=== PATIENT | female | born 1960 | race Caucasian/White ===

== ENCOUNTER 2017-05-08 17:08 | Inpatient (IN) | payer BC ==
[2017-05-08] MEDS ORDERED: Ondansetron 4 MG/2 ML SDV IVPUSH ONE (17:47)
[2017-05-08] MEDS ORDERED: Sodium Chloride 0.9% 1,000 ML IV ONE ×2 (17:47→20:10)
[2017-05-08] MEDS ORDERED: HYDROmorphone 0.5 MG/0.5 ML SYRINGE IVPUSH ONE ×2 (17:47→19:02)
--- NOTE | 2017-05-08 18:08 | EDM.PDOC ---
ED HPI GENERAL MEDICAL PROBLEM - General Chief Complaint: Abdominal Pain Stated Complaint: ABDOMINAL PAIN Time Seen by Provider: 05/08/17 17:34 Source of Information: Reports: Patient, Old Records (clinic visit 05-08-17) History Limitations: Reports: No Limitations - History of Present Illness INITIAL COMMENTS - FREE TEXT/NARRATIVE: 56-year-old female presents for evaluation and treatment of abdominal pain. Patient reports she is she has been experiencing abdominal pain for the last 4 days. Worsened today. She presented to the clinic where she had labs and an x- ray don Labs remarkable for CRP is 15. White blood cell count was 9.25. Abdominal x-ray was reportedly unremarkable. Patient is primarily complaining of pain to the left lower quadrant. Reportedly had a temperature of 101 at home yesterday. Reports associated symptoms of a fever and headache. No nausea, vomiting or diarrhea. No urinary symptoms such as dysuria. No chest pain. No previous abdominal surgeries. She did appreciate that eating makes the pain worse. Last intake was around noon, she had some tomato soup. She's not had any previous abdominal surgeries. No previous colonoscopy. Lower Abdominal Pain Score (Numeric/FACES): 3 - Related Data Allergies Allergy/AdvReac Type Severity Reaction Status Date / Time No Known Allergies Allergy Verified 05/08/17 22:21 Home Meds: Home Meds Lisinopril 10 mg PO DAILY 05/08/17 [History] Past Medical History Cardiovascular History: Reports: Hypertension Other Musculoskeletal History: back surgery - Past Surgical History Female Surgical History: Reports: Hysterectomy Social & Family History - Tobacco Use Smoking Status *Q: Never Smoker - Recreational Drug Use Recreational Drug Use: No ED ROS GENERAL - Review of Systems Review Of Systems: See Below Constitutional: Reports: Fever (101 at home), Decreased Appetite GI/Abdominal: Reports: Abdominal Pain (LLQ). Denies: Diarrhea, Nausea, Vomiting : Reports: No Symptoms. Denies: Dysuria ED EXAM, GI/ABD - Physical Exam Exam: See Below Exam Limited By: No Limitations General Appearance: Alert, WD/WN, Mild Distress Respiratory/Chest: No Respiratory Distress, Lungs Clear, Normal Breath Sounds Cardiovascular: Normal Peripheral Pulses, Regular Rate, Rhythm, No Murmur GI/Abdominal Exam: Normal Bowel Sounds, Soft, Guarding, Rebound, Tender (LLQ, LUQ). No: Rigid Neurological: Alert, Oriented, Normal Cognition Psychiatric: Normal Affect, Normal Mood Skin Exam: Warm, Dry, Normal Color EKG INTERPRETATION EKG Date: 05/08/17 Time: 21:50 Rhythm: Other (sinus tach) Rate (Beats/Min): 102 [place]burn: LAD-Left Heyburn Deviation P-Wave: Present QRS: Normal ST-T: Normal QT: Normal EKG Interpretation Comments: Sinus tachycardia at 102 bpm. LAD (-54 degrees) LAFB. Poor "R" wave progression. RSR' V1-I normal variant. Near Q waves III and AVF - consider old inferior wall MT. Reviewed by myself and Dr. Amrao. Course - Vital Signs Last Recorded V/S: Last Vital Signs Temp 37.2 C 05/08/17 17:23 Pulse 96 05/08/17 17:23 Resp 16 05/08/17 17:23 BP 182/109 H 05/08/17 17:23 Pulse Ox 98 05/08/17 17:23 - Orders/Labs/Meds Orders: Active Orders 24 hr Category Date Time Status Abdomen Pelvis w Cont [CT] Stat Exams 05/08/17 17:47 Taken CULTURE BLOOD [BC] Stat Lab 05/08/17 19:45 Received CULTURE BLOOD [BC] Stat Lab 05/08/17 19:55 Received CULTURE URINE [RM] Stat Lab 05/08/17 15:56 Received Sodium Chloride 0.9% [Normal Saline] 1,000 ml Med 05/08/17 20:10 Active IV ONETIME Sodium Chloride 0.9% [Saline Flush] Med 05/08/17 19:13 Active 10 ml FLUSH ONETIME PRN Blood Culture x2 Reflex Set [OM.PC] Stat Oth 05/08/17 19:02 Ordered Medication Orders Heparin Sodium (Porcine) (Heparin Sodium) 5,000 units SUBCUT Q8H ALEXANDRA Hydromorphone HCl (Dilaudid) 0.2 - 0.6 mg IVPUSH Q2H PRN PRN Reason: Pain Sodium Chloride (Normal Saline) 1,000 mls @ 125 mls/hr IV ONETIME ONE Stop: 05/09/17 04:09 Last Admin: 05/08/17 20:15 Dose: 125 mls/hr Piperacillin Sod/Tazobactam (Sod 4.5 gm/ Sodium Chloride) 100 mls @ 33.333 mls/ hr IV Q8H ALEXANDRA Sodium Chloride (Normal Saline) 1,000 mls @ 125 mls/hr IV ASDIRECTED ALEXANDRA Ondansetron HCl (Zofran) 4 mg IVPUSH Q8H PRN PRN Reason: Nausea/Vomiting Sodium Chloride (Saline Flush) 10 ml FLUSH ONETIME PRN PRN Reason: Keep Vein Open Last Admin: 05/08/17 19:27 Dose: 10 ml Labs: Laboratory Tests 05/08/17 Range/Units 19:45 Lactic Acid 0.9 (0.4-2.0) mmol/L Meds: Medications Generic Name Dose Route Start Last Admin Trade Name Freq PRN Reason Stop Dose Admin Heparin Sodium (Porcine) 5,000 units 05/08/17 21:15 Heparin Sodium SUBCUT Q8H ALEXANDRA Hydromorphone HCl 0.2 - 0.6 mg 05/08/17 21:09 Dilaudid IVPUSH Q2H PRN Pain Sodium Chloride 1,000 mls @ 125 mls/hr 05/08/17 20:10 05/08/17 20:15 Normal Saline IV 05/09/17 04:09 125 mls/hr ONETIME ONE Administration Piperacillin Sod/Tazobactam 100 mls @ 33.333 mls/hr 05/09/17 06:00 Sod 4.5 gm/ Sodium Chloride IV Q8H ALEXANDRA Sodium Chloride 1,000 mls @ 125 mls/hr 05/08/17 21:15 Normal Saline IV ASDIRECTED ALEXANDRA Ondansetron HCl 4 mg 05/08/17 21:09 Zofran IVPUSH Q8H PRN Nausea/Vomiting Sodium Chloride 10 ml 05/08/17 19:13 05/08/17 19:27 Saline Flush FLUSH 10 ml ONETIME PRN Administration Keep Vein Open Discontinued Medications Generic Name Dose Route Start Last Admin Trade Name Freq PRN Reason Stop Dose Admin Diatrizoate Meglum/Diatrizoate Sod 90 ml 05/08/17 19:13 05/08/17 19:26 Gastrografin 37% PO 05/08/17 19:14 90 ml ONETIME ONE Administration Hydromorphone HCl 0.5 mg 05/08/17 17:47 05/08/17 17:59 Dilaudid IVPUSH 05/08/17 17:48 0.5 mg ONETIME ONE Administration Hydromorphone HCl 0.5 mg 05/08/17 19:02 05/08/17 19:11 Dilaudid IVPUSH 05/08/17 19:03 0.5 mg ONETIME ONE Administration Sodium Chloride 1,000 mls @ 999 mls/hr 05/08/17 17:47 05/08/17 17:58 Normal Saline IV 05/08/17 18:47 999 mls/hr ONETIME ONE Administration Levofloxacin/Dextrose 750 mg/ 150 mls @ 100 mls/hr 05/08/17 20:01 05/08/17 20 :12 Premix IV 05/08/17 21:30 100 mls/hr ONETIME ONE Administration Metronidazole 500 mg/ Premix 100 mls @ 100 mls/hr 05/08/17 20:01 05/08/17 20: 15 IV 05/08/17 21:00 100 mls/hr ONETIME ONE Administration Iopamidol 125 ml 05/08/17 19:13 05/08/17 19:26 Isovue-300 (61%) IVPUSH 05/08/17 19:14 125 ml ONETIME ONE Administration Ondansetron HCl 4 mg 05/08/17 17:47 05/08/17 17:58 Zofran IVPUSH 05/08/17 17:48 4 mg ONETIME ONE Administration - Radiology Interpretation Free Text/Narrative:: CT of the abdomen and pelvis with IV and oral contrast impression per Kar acute diverticulitis left lower quadrant phlegmon an arrow within surrounding mesentery. Stomach and bowel show multiple colonic diverticula are present. Wall thickening of the descending colon with surrounding inflammatory change consistent with acute diverticulitis. Small moderate air is noted within the surrounding mesentery consistent with mild friction phlegmon. No obstruction. No findings to suggest acute appendicitis. - Re-Assessments/Exams Free Text/Narrative Re-Assessment/Exam: 05/08/17 17:55 Labs and imaging from the clinic include the following: Flat and upright abdominal xray impression per Dr. Chen: Incidental findings. Bowel gas pattern appears normal. No free air is seen. white Blood cell count 9.25, hemoglobin 15.5, hematocrit 47.0, platelets 259. 67.9% neutrophils, 18.8% lymphocytes. Sodium 142, potassium 3.9, chloride 104, bicarbonate 26, anion gap 15.9, BUN 16 , creatinine 0.7. Glucose 101. Total bilirubin 0.8, AST 26, ALT, 36, alkaline phosphatase 68. CRP is elevated at 15.8. Lipase is normal at 81. UA shows trace leukocytes, few bacteria and positive nitrites. 2+ protein, trace ketones and 1+ bilirubin.. 05/08/17 20:25 Patient has received 1 mg, total, IV Dilaudid, Zofran and fluids. I ordered her some Levaquin and Flagyl for the diverticulitis. I reviewed the imaging results with the patient. Given that this is a complicated case of diverticulitis due to the small perforation and phlegmon I do feel she needs to be admitted. Blood pressure has come down once pain was better controlled. Blood pressure at 1913 148/97 at 1915 147/[address] Cheatham, surgery diamond mounter. He will come to the ER and evaluated the patient. Plan for admission. Plan will be to manage with IV antibiotics, pain medication and nothing by mouth status. 05/08/17 22:31 Blood pressure at 21:20 si 154/[address] Cheatham has come and seen the patient. She'll be admitted to [facility] for IV antibiotics and pain control. Departure - Departure Time of Disposition: 21:40 Disposition: Admitted As Inpatient 64 Condition: Fair Clinical Impression: Diverticulitis large intestine Qualifiers: Diverticulitis bleeding: unspecified bleeding status Diverticulitis complication: with perforation Qualified Code(s): K57.20 - Diverticulitis of large intestine with perforation and abscess without bleeding - Discharge Information - My Orders Last 24 Hours: My Active Orders 05/08/17 15:56 CULTURE URINE [RM] Stat 05/08/17 17:47 Abdomen Pelvis w Cont [CT] Stat 05/08/17 19:02 Blood Culture x2 Reflex Set [OM.PC] Stat 05/08/17 19:13 Sodium Chloride 0.9% [Saline Flush] 10 ml FLUSH ONETIME PRN 05/08/17 19:45 CULTURE BLOOD [BC] Stat 05/08/17 19:55 CULTURE BLOOD [BC] Stat 05/08/17 20:10 Sodium Chloride 0.9% [Normal Saline] 1,000 ml IV ONETIME - Assessment/Plan Last 24 Hours: My Active Orders 05/08/17 15:56 CULTURE URINE [RM] Stat 05/08/17 17:47 Abdomen Pelvis w Cont [CT] Stat 05/08/17 19:02 Blood Culture x2 Reflex Set [OM.PC] Stat 05/08/17 19:13 Sodium Chloride 0.9% [Saline Flush] 10 ml FLUSH ONETIME PRN 05/08/17 19:45 CULTURE BLOOD [BC] Stat 05/08/17 19:55 CULTURE BLOOD [BC] Stat 05/08/17 20:10 Sodium Chloride 0.9% [Normal Saline] 1,000 ml IV ONETIME
[2017-05-08] MEDS ORDERED: Iopamidol 612 MG/ML 150 ML Bottle IVPUSH ONE (19:13)
[2017-05-08] MEDS ORDERED: Diatrizoate Meglumine/Diatrizoate Sodium 37% 120 ML Bottle PO ONE (19:13)
[2017-05-08] MEDS ORDERED: Sodium Chloride 0.9% 10 ML Syringe FLUSH PRN (19:13)
[2017-05-08] MEDS ORDERED: Levofloxacin/Dextrose 5%-Water 750 MG in Premix Bag 1 BAG IV ONE (20:01)
[2017-05-08] MEDS ORDERED: metroNIDAZOLE/Normal Saline 500 MG in Premix Bag 1 BAG IV ONE (20:01)
[2017-05-08] MEDS ORDERED: Ondansetron 4 MG/2 ML SDV IVPUSH PRN (21:09)
--- NOTE | 2017-05-08 22:10 | PCM.HP ---
H&P History of Present Illness - General Date of Service: 05/08/17 Admit Problem/Dx: Admission Diagnosis/Problem Admission Diagnosis/Problem Diverticulitis of colon Source of Information: Patient History Limitations: Reports: No Limitations - History of Present Illness Initial Comments - Free Text/Narative: 56 yo female, presents with worsening LEFT-sided abdominal pain which started about 4 days ago. Pain got acutely worse last night, which prompted the patient to seek care in the outpatient clinic this afternoon. Due to the need for CT scan, she was referred to the ER. She received IV Dilaudid for pain control, with partial relief. She has noted decreased appetite during the pain episode, without nausea/emesis. She also had loose stool last night, without bloody bowel movements. She has noted decreased flatus when asked. Patient has never had a colonoscopy. Patient believes that she has no FHx of colon cancer or colonic polyps. Lower Abdominal Pain Score (Numeric/FACES): 3 - Related Data Allergies/Adverse Reactions: Allergies Allergy/AdvReac Type Severity Reaction Status Date / Time No Known Allergies Allergy Verified 05/08/17 22:21 Past Medical History Cardiovascular History: Reports: Hypertension (Takes lisinopril daily (last dose was noon today).) Other Musculoskeletal History: back surgery - Past Surgical History Female Surgical History: Reports: Breast Implant (20 years ago), Hysterectomy (Age 33 (reason unclear).) Neurological Surgical History: Reports: Lumbar Spine (for lumbar disc herniation (about 1 year ago)) Social & Family History - Family History Respiratory: Reports: COPD (Father had COPD/emphysema) GI: Reports: Bowel Obstruction (Father had colonic obstruction (from diverticular disease?), requiring surgery and colostomy) - Tobacco Use Smoking Status *Q: Former Smoker (Quit 25 years ago) - Alcohol Use Alcohol Use History: Yes Days Per Week of Alcohol Use: 7 (7-14 drinks/week) - Recreational Drug Use Recreational Drug Use: No - Living Situation & Occupation Living situation: Reports: ( present at bedside), Other (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76 kg - Exam General: Alert, Oriented, Cooperative HEENT: Conjunctiva Clear. No: Scleral Icterus Neck: Supple. No: Lymphadenopathy Lungs: Clear to Auscultation, Normal Respiratory Effort Cardiovascular: Regular Rhythm, Normal S1, Normal S2, Tachycardia GI/Abdominal Exam: Soft, Tender (Tender to the LEFT mid-abdomen and LLQ, with percussion tenderness), Other (No obvious surgical scars) Extremities: Normal Inspection Skin: Warm Neuro Extensive - Mental Status: Alert, Normal Mood/Affect, Normal Cognition Psychiatric: Alert, Normal Affect, Normal Mood - Patient Data Lab Results Last 24 hrs: Laboratory Results - last 24 hr 05/08/17 Range/Units 19:45 Lactic Acid 0.9 (0.4-2.0) mmol/L Problem List Initiated/Reviewed/Updated: Yes Orders Last 24hrs: Active Orders 24 hr Category Date Time Status Patient Status [ADT] Urgent ADT 05/08/17 21:02 Active Ambulate [RC] Q8HR Care 05/08/17 21:02 Active EKG 12 Lead [EKG Documentation Completion] [RC] STAT Care 05/08/17 21:25 Active Intake and Output Strict [RC] Q4HR Care 05/08/17 21:15 Active Oxygen Therapy [RC] PRN Care 05/08/17 21:02 Active RT Incentive Spirometry [RC] ASDIRECTED Care 05/08/17 21:09 Active VTE/DVT Education [RC] PER UNIT ROUTINE Care 05/08/17 21:02 Active Vital Signs [RC] Q4H Care 05/08/17 21:02 Active Nothing Per Oral Diet [DIET] Diet 05/08/17 Dinner Active Abdomen Pelvis w Cont [CT] Stat Exams 05/08/17 17:47 Taken CULTURE BLOOD [BC] Stat Lab 05/08/17 19:45 Received CULTURE BLOOD [BC] Stat Lab 05/08/17 19:55 Received CULTURE URINE [RM] Stat Lab 05/08/17 15:56 Received HYDROmorphone [Dilaudid] Med 05/08/17 21:09 Active 0.2 - 0.6 mg IVPUSH Q2H PRN Heparin Sodium Med 05/08/17 21:15 Active 5,000 units SUBCUT Q8H Ondansetron [Zofran] Med 05/08/17 21:09 Active 4 mg IVPUSH Q8H PRN Piperacillin/Tazobactam [Zosyn] 4.5 gm Med 05/09/17 06:00 Active Sodium Chloride 0.9% [Normal Saline] 100 ml IV Q8H Sodium Chloride 0.9% [Normal Saline] 1,000 ml Med 05/08/17 21:15 Active IV ASDIRECTED Sodium Chloride 0.9% [Normal Saline] 1,000 ml Med 05/08/17 20:10 Active IV ONETIME Sodium Chloride 0.9% [Saline Flush] Med 05/08/17 19:13 Active 10 ml FLUSH ONETIME PRN Blood Culture x2 Reflex Set [OM.PC] Stat Oth 05/08/17 19:02 Ordered Sequential Compression Device [OM.PC] Routine Oth 05/08/17 21:09 Ordered Resuscitation Status Routine Resus Stat 05/08/17 21:02 Ordered Medication Orders Heparin Sodium (Porcine) (Heparin Sodium) 5,000 units SUBCUT Q8H ALEXANDRA Hydromorphone HCl (Dilaudid) 0.2 - 0.6 mg IVPUSH Q2H PRN PRN Reason: Pain Sodium Chloride (Normal Saline) 1,000 mls @ 125 mls/hr IV ONETIME ONE Stop: 05/09/17 04:09 Last Admin: 05/08/17 20:15 Dose: 125 mls/hr Piperacillin Sod/Tazobactam (Sod 4.5 gm/ Sodium Chloride) 100 mls @ 33.333 mls/ hr IV Q8H ALEXANDRA Sodium Chloride (Normal Saline) 1,000 mls @ 125 mls/hr IV ASDIRECTED ALEXNADRA Ondansetron HCl (Zofran) 4 mg IVPUSH Q8H PRN PRN Reason: Nausea/Vomiting Sodium Chloride (Saline Flush) 10 ml FLUSH ONETIME PRN PRN Reason: Keep Vein Open Last Admin: 05/08/17 19:27 Dose: 10 ml Assessment/Plan Comment:: Mrs. Mcrae is a 56 yo female, history of hypertension, presenting with acute LEFT-sided colonic diverticulitis, with small pericolonic/mesenteric phlegmon ( [place]hey I). - Recommend admission for IV antibiotics. - Patient already received a dose of levofloxacin IV and metronidazole IV in the ER. Will continue IV antibiotics, but switch to IV Zosyn. - Pain control with IV Dilaudid PRN. - Bowel rest (NPO with sips of water). - IV fluids. - Strict I&O's. - SCD's and heparin 5000 units SQ q8h for DVT prophylaxis. - Explained to the patient the need for admission and IV antibiotics. If the patient does not clinically improve, she may require surgical intervention with possible colonic resection and colostomy. - Once patient recovers from this acute episode, she will require a colonoscopy. Patient with elevated BP on admission. Repeat vitals recently show SBP 140-150' s. Will monitor BP, and consider resumption of home dose of lisinopril. Patient would like to return home for a brief moment (<1 hour) in order to complete some important tax documents. The patient and her were determined to be reliable, and will plan to return to the hospital for inpatient care on [facility].
[2017-05-08] MEDS: Heparin Sodium 5,000 Units/ML Vial SUBCUT SCH (22:49)
[2017-05-08] MEDS ORDERED: Promethazine 12.5 MG in Sodium Chloride 0.9% 50 ML IV PRN (23:15)
[2017-05-08] MEDS: Ondansetron 4 MG/2 ML SDV IVPUSH PRN (23:41)
[2017-05-09] MEDS: Sodium Chloride 0.9% 1,000 ML IV SCH ×2 (04:21→12:39)
[2017-05-09] MEDS: HYDROmorphone 0.5 MG/0.5 ML SYRINGE IVPUSH PRN ×6 (04:36→21:07)
[2017-05-09] MEDS: Heparin Sodium 5,000 Units/ML Vial SUBCUT SCH ×4 (04:46→21:10)
[2017-05-09] MEDS: Ondansetron 4 MG/2 ML SDV IVPUSH PRN ×3 (05:36→20:01)
[2017-05-09] MEDS: Piperacillin/Tazobactam 4.5 GM in Sodium Chloride 0.9% 100 ML IV SCH ×3 (05:41→21:43)
--- NOTE | 2017-05-09 08:30 | CT ---
CT abdomen and pelvis Technique: Multiple axial sections were obtained from above the dome of the diaphragm inferiorly to the pubic symphysis. Intravenous and oral contrast was utilized. Delayed images were also obtained through the bladder. Comparison: No prior CT exam, previous abdominal x-ray performed earlier on the same day (3:56 PM). Findings: Inflammatory change is seen around the left colon at the junction of the sigmoid colon and descending colon. Findings are compatible with diverticulitis. Small amount of extraluminal air is seen compatible with diverticular perforation with mild amount of surrounding phlegmon. No focal fluid collections of abscess are seen at this time. Slight atelectasis is seen posteriorly within both lung bases. Incidental breast prosthesis are noted. Liver shows diffuse fatty infiltration without focal abnormality. Spleen appears within normal limits. Adrenal glands show no nodule. Pancreas is within normal limits. Gallbladder contains no calcified gallstones. Kidneys show symmetric contrast enhancement without hydronephrosis. Small cyst measuring less than 1 cm incidentally noted within the left kidney. Kidneys show no other mass. Aorta shows no aneurysmal dilatation. No retroperitoneal adenopathy or mesenteric abnormalities are seen. No pelvic mass or adenopathy is seen. Numerous diverticuli are seen within the sigmoid colon. No additional pelvic abnormality is identified. Delayed images show contrast within the distal ureters and within the bladder. Bone window settings were reviewed which appear within normal limits for the patient's age. Impression: 1. Findings compatible with diverticulitis at the junction of the descending and sigmoid regions with a small amount of extraluminal air compatible with diverticular perforation. Mild amount of surrounding phlegmon is seen. No abscess is seen at this time. 2. Fatty infiltration within the liver. 3. Other incidental findings. Diagnostic code #3 Agree with preliminary report issued by [facility] ([facility] preliminary report dictated on 05/08/17, 8:43 PM Central Time)
--- NOTE | 2017-05-09 13:51 | PCM.PN ---
- General Info Date of Service: 05/09/17 Subjective Update: Overnight, patient had emesis x2. She also had difficulty sleeping due to multiple episodes of watery bowel movements, but this has resolved. Nausea has also since resolved, although she still has lack of appetite. She reports overall that her LEFT-sided abdominal pain has improved. She gets relief from IV Dilaudid (two doses today so far). She does have occasional headache. She has been ambulating to and from the bathroom. [id number]. - Patient Data Vitals - Most Recent: Last Vital Signs Temp 36.3 C 05/09/17 11:09 Pulse 82 05/09/17 11:09 Resp 16 05/09/17 11:09 BP 128/90 05/09/17 11:09 Pulse Ox 93 L 05/09/17 11:09 Weight - Most Recent: 73.936 kg I&O - Last 24 Hours: Intake & Output 05/08/17 05/09/17 05/09/17 22:59 06:59 14:59 Intake Total 925 Output Total 220 Balance 705 Lab Results Last 24 Hours: Laboratory Results - last 24 hr 05/08/17 Range/Units 19:45 Lactic Acid 0.9 (0.4-2.0) mmol/L Med Orders - Current: Current Medications Heparin Sodium (Porcine) (Heparin Sodium) 5,000 units SUBCUT Q8H [facility] Last Admin: 05/09/17 12:39 Dose: 5,000 units Hydromorphone HCl (Dilaudid) 0.2 - 0.6 mg IVPUSH Q2H PRN PRN Reason: Pain Last Admin: 05/09/17 12:40 Dose: 0.4 mg Piperacillin Sod/Tazobactam (Sod 4.5 gm/ Sodium Chloride) 100 mls @ 33.333 mls/ hr IV Q8H [facility] Last Admin: 05/09/17 13:07 Dose: 33.333 mls/hr Sodium Chloride (Normal Saline) 1,000 mls @ 125 mls/hr IV ASDIRECTED [facility] Last Admin: 05/09/17 12:39 Dose: 125 mls/hr Promethazine HCl 12.5 mg/ (Sodium Chloride) 50.5 mls @ 100 mls/hr IV Q6H PRN PRN Reason: Nausea Ondansetron HCl (Zofran) 4 mg IVPUSH Q4H PRN PRN Reason: Nausea Last Admin: 05/09/17 12:56 Dose: 4 mg Sodium Chloride (Saline Flush) 10 ml FLUSH ONETIME PRN PRN Reason: Keep Vein Open Last Admin: 05/08/17 19:27 Dose: 10 ml Discontinued Medications Diatrizoate Meglum/Diatrizoate Sod (Gastrografin 37%) 90 ml PO ONETIME ONE Stop: 05/08/17 19:14 Last Admin: 05/08/17 19:26 Dose: 90 ml Hydromorphone HCl (Dilaudid) 0.5 mg IVPUSH ONETIME ONE Stop: 05/08/17 17:48 Last Admin: 05/08/17 17:59 Dose: 0.5 mg Hydromorphone HCl (Dilaudid) 0.5 mg IVPUSH ONETIME ONE Stop: 05/08/17 19:03 Last Admin: 05/08/17 19:11 Dose: 0.5 mg Sodium Chloride (Normal Saline) 1,000 mls @ 999 mls/hr IV ONETIME ONE Stop: 05/08/17 18:47 Last Admin: 05/08/17 17:58 Dose: 999 mls/hr Levofloxacin/Dextrose 750 mg/ (Premix) 150 mls @ 100 mls/hr IV ONETIME ONE Stop: 05/08/17 21:30 Last Admin: 05/08/17 20:12 Dose: 100 mls/hr Metronidazole 500 mg/ Premix 100 mls @ 100 mls/hr IV ONETIME ONE Stop: 05/08/17 21:00 Last Admin: 05/08/17 20:15 Dose: 100 mls/hr Sodium Chloride (Normal Saline) 1,000 mls @ 125 mls/hr IV ONETIME ONE Stop: 05/09/17 04:09 Last Admin: 05/08/17 20:15 Dose: 125 mls/hr Iopamidol (Isovue-300 (61%)) 125 ml IVPUSH ONETIME ONE Stop: 05/08/17 19:14 Last Admin: 05/08/17 19:26 Dose: 125 ml Ondansetron HCl (Zofran) 4 mg IVPUSH ONETIME ONE Stop: 05/08/17 17:48 Last Admin: 05/08/17 17:58 Dose: 4 mg Ondansetron HCl (Zofran) 4 mg IVPUSH Q8H PRN PRN Reason: Nausea/Vomiting Comments:: Urine output inaccurate, since patient has been flushing her urine after voiding. - Exam GI/Abdominal Exam: Soft, Tender (to the LEFT-abdomen.) Psy/Mental Status: Alert, Normal Affect, Normal Mood - Problem List & Annotations (1) Diverticulitis large intestine SNOMED Code(s): 3483011 Code(s): K57.32 - DVTRCLI OF LG INT W/O PERFORATION OR ABSCESS W/O BLEEDING Status: Acute Current Visit: Yes Qualifiers: Diverticulitis bleeding: unspecified bleeding status Diverticulitis complication: with perforation Qualified Code(s): K57.20 - Diverticulitis of large intestine with perforation and abscess without bleeding - Problem List Review Problem List Initiated/Reviewed/Updated: Yes - My Orders Last 24 Hours: My Active Orders 05/08/17 21:02 Patient Status [ADT] Urgent Ambulate [RC] Q8HR Oxygen Therapy [RC] PRN VTE/DVT Education [RC] PER UNIT ROUTINE Vital Signs [RC] Q4HR Resuscitation Status Routine 05/08/17 21:09 RT Incentive Spirometry [RC] ASDIRECTED HYDROmorphone [Dilaudid] 0.2 - 0.6 mg IVPUSH Q2H PRN Sequential Compression Device [OM.PC] Routine 05/08/17 21:15 Intake and Output Strict [RC] Q4HR Heparin Sodium 5,000 units SUBCUT Q8H Sodium Chloride 0.9% [Normal Saline] 1,000 ml IV ASDIRECTED 05/08/17 23:13 Ondansetron [Zofran] 4 mg IVPUSH Q4H PRN 05/08/17 23:15 Promethazine [Phenergan] 12.5 mg Sodium Chloride 0.9% [Normal Saline] 50 ml IV Q6H 05/08/17 Dinner Nothing Per Oral Diet [DIET] 05/09/17 06:00 Piperacillin/Tazobactam [Zosyn] 4.5 gm Sodium Chloride 0.9% [Normal Saline] 100 ml IV Q8H - Plan Plan:: Mrs. Mcrae is a 56 yo female, history of hypertension, presenting with acute LEFT-sided colonic diverticulitis, with small pericolonic/mesenteric phlegmon ( Hinchey I), HD#2. Patient clinically stable, without fevers and tachycardia, and overall improved pain. - Continue IV Zosyn. - Continue Dilaudid PRN. Add Tylenol PO PRN for headaches. - Instructed patient to call nursing after each void in order to obtain accurate UOP. - Change IV fluids to D5-1/2NS with 20 mEq KCl. - Hold home dose of lisinopril (SBP overnight and today has been 110-140's). - Continue heparin SQ for DVT prophylaxis. - Encourage ambulation and IS - Sleep hygiene. - Obtain labs (CBC, chemistry, CRP) tomorrow AM. - Patient was educated on diagnosis and plan of care. Grey Tran M.D., F.A.C.S. General Surgery Pager: [phone]
[2017-05-09] MEDS: Acetaminophen 325 MG Tab PO PRN ×2 (15:52→21:44)
[2017-05-09] MEDS: D5 1/2 NS w/ 20 mEq/L KCl 1,000 ML IV SCH (20:48)
[2017-05-10] MEDS: HYDROmorphone 0.5 MG/0.5 ML SYRINGE IVPUSH PRN ×7 (01:17→22:39)
[2017-05-10] MEDS: Heparin Sodium 5,000 Units/ML Vial SUBCUT SCH ×3 (06:05→20:58)
[2017-05-10] MEDS: Piperacillin/Tazobactam 4.5 GM in Sodium Chloride 0.9% 100 ML IV SCH ×3 (06:09→21:06)
[2017-05-10] MEDS: Acetaminophen 325 MG Tab PO PRN ×2 (06:25→19:50)
[2017-05-10] MEDS: D5 1/2 NS w/ 20 mEq/L KCl 1,000 ML IV SCH (10:59)
--- NOTE | 2017-05-10 11:38 | PCM.PN ---
- General Info Date of Service: 05/10/17 Subjective Update: Overnight, patient had nausea (without emesis), relieved with Zofran and Phenergan IV. She was able to sleep well last night. Pain in the LEFT abdomen has overall improved, using Dilaudid PRN. She reports symptoms have decreased by about 50% from yesterday. Headaches relieved with PO Tylenol. She has been ambulating without difficulty. She would like to take some liquids PO. - Patient Data Vitals - Most Recent: Last Vital Signs Temp 36.7 C 05/10/17 08:19 Pulse 67 05/10/17 08:19 Resp 14 05/10/17 08:19 BP 131/93 H 05/10/17 08:19 Pulse Ox 95 05/10/17 08:19 Weight - Most Recent: 73.346 kg I&O - Last 24 Hours: Intake & Output 05/09/17 05/10/17 05/10/17 22:59 06:59 14:59 Intake Total 1704 703 Output Total 850 1650 Balance 854 -947 UOP >100 cc/hr past 24 hours. Lab Results Last 24 Hours: Laboratory Results - last 24 hr 05/10/17 05/10/17 Range/Units 06:04 06:04 WBC 5.32 (3.98-10.04) K/mm3 RBC 3.45 L (3.98-5.22) M/mm3 Hgb 11.8 (11.2-15.7) gm/L Hct 36.5 (34.1-44.9) % MCV 105.8 H (79.4-94.8) fl MCH 34.2 H (25.6-32.2) pg MCHC 32.3 (32.2-35.5) g/dl RDW Std Deviation 46.4 H (36.4-46.3) fL Plt Count 222 (182-369) K/mm3 MPV 10.7 (9.4-12.3) fl Neut % (Auto) 41.9 (34.0-71.1) % Lymph % (Auto) 40.4 (19.3-51.7) % [place] % (Auto) 12.6 H (4.7-12.5) % Eos % (Auto) 4.3 (0.7-5.8) Baso % (Auto) 0.6 (0.1-1.2) % Neut # (Auto) 2.23 (1.56-6.13) K/mm3 Lymph # (Auto) 2.15 (1.18-3.74) K/mm3 [place] # (Auto) 0.67 H (0.24-0.36) K/mm3 Eos # (Auto) 0.23 (0.04-0.36) K/mm3 Baso # (Auto) 0.03 (0.01-0.08) K/mm3 Manual Slide Review Abnormal smear Sodium 143 (136-145) mEq/L Potassium 3.5 (3.5-5.1) mEq/L Chloride 109 H (98-107) mEq/L Carbon Dioxide 25 (21-32) mEq/L Anion Gap 12.5 (5-15) Phosphorus 2.9 (2.6-4.7) mg/dL Magnesium 1.9 (1.8-2.4) mg/dl C-Reactive Protein 7.4 H* (<1.0) mg/dL Gigi Results Last 24 Hours: Microbiology 05/08/17 15:56 Urine Culture - Preliminary Urine, Bladder 05/08/17 19:55 Aerobic Blood Culture - Preliminary Blood - Venous - Lab Draw NO GROWTH AFTER 1 DAY Anaerobic Blood Culture - Preliminary NO GROWTH AFTER 1 DAY 05/08/17 19:45 Aerobic Blood Culture - Preliminary Blood - Venous NO GROWTH AFTER 1 DAY Anaerobic Blood Culture - Preliminary NO GROWTH AFTER 1 DAY Med Orders - Current: Current Medications Acetaminophen (Tylenol) 650 mg PO Q6H PRN PRN Reason: Headache Last Admin: 05/10/17 06:25 Dose: 650 mg Heparin Sodium (Porcine) (Heparin Sodium) 5,000 units SUBCUT Q8H [facility] Last Admin: 05/10/17 06:05 Dose: 5,000 units Hydromorphone HCl (Dilaudid) 0.2 - 0.6 mg IVPUSH Q2H PRN PRN Reason: Pain Last Admin: 05/10/17 10:59 Dose: 0.5 mg Piperacillin Sod/Tazobactam (Sod 4.5 gm/ Sodium Chloride) 100 mls @ 25 mls/hr IV Q8H [facility] Last Admin: 05/10/17 06:09 Dose: 33.333 mls/hr Promethazine HCl 12.5 mg/ (Sodium Chloride) 50.5 mls @ 100 mls/hr IV Q6H PRN PRN Reason: Nausea Last Admin: 05/09/17 21:40 Dose: 100 mls/hr Potassium Chloride/Dextrose/Sod Cl (D5 1/2 Ns W/ 20 Meq/L Kcl) 1,000 mls @ 125 mls/hr IV ASDIRECTED [facility] Last Admin: 05/10/17 10:59 Dose: 125 mls/hr Ondansetron HCl (Zofran) 4 mg IVPUSH Q4H PRN PRN Reason: Nausea Last Admin: 05/09/17 20:01 Dose: 4 mg Sodium Chloride (Saline Flush) 10 ml FLUSH ONETIME PRN PRN Reason: Keep Vein Open Last Admin: 05/08/17 19:27 Dose: 10 ml Discontinued Medications Diatrizoate Meglum/Diatrizoate Sod (Gastrografin 37%) 90 ml PO ONETIME ONE Stop: 05/08/17 19:14 Last Admin: 05/08/17 19:26 Dose: 90 ml Hydromorphone HCl (Dilaudid) 0.5 mg IVPUSH ONETIME ONE Stop: 05/08/17 17:48 Last Admin: 05/08/17 17:59 Dose: 0.5 mg Hydromorphone HCl (Dilaudid) 0.5 mg IVPUSH ONETIME ONE Stop: 05/08/17 19:03 Last Admin: 05/08/17 19:11 Dose: 0.5 mg Sodium Chloride (Normal Saline) 1,000 mls @ 999 mls/hr IV ONETIME ONE Stop: 05/08/17 18:47 Last Admin: 05/08/17 17:58 Dose: 999 mls/hr Levofloxacin/Dextrose 750 mg/ (Premix) 150 mls @ 100 mls/hr IV ONETIME ONE Stop: 05/08/17 21:30 Last Admin: 05/08/17 20:12 Dose: 100 mls/hr Metronidazole 500 mg/ Premix 100 mls @ 100 mls/hr IV ONETIME ONE Stop: 05/08/17 21:00 Last Admin: 05/08/17 20:15 Dose: 100 mls/hr Sodium Chloride (Normal Saline) 1,000 mls @ 125 mls/hr IV ONETIME ONE Stop: 05/09/17 04:09 Last Admin: 05/08/17 20:15 Dose: 125 mls/hr Sodium Chloride (Normal Saline) 1,000 mls @ 125 mls/hr IV ASDIRECTED [facility] Stop: 05/09/17 20:40 Last Admin: 05/09/17 12:39 Dose: 125 mls/hr Iopamidol (Isovue-300 (61%)) 125 ml IVPUSH ONETIME ONE Stop: 05/08/17 19:14 Last Admin: 05/08/17 19:26 Dose: 125 ml Ondansetron HCl (Zofran) 4 mg IVPUSH ONETIME ONE Stop: 05/08/17 17:48 Last Admin: 05/08/17 17:58 Dose: 4 mg Ondansetron HCl (Zofran) 4 mg IVPUSH Q8H PRN PRN Reason: Nausea/Vomiting - Exam General: Alert, Oriented, Cooperative, No Acute Distress GI/Abdominal Exam: Soft, Tender (decreased tenderness to LEFT abdomen). No: Distended - Problem List & Annotations (1) Diverticulitis large intestine SNOMED Code(s): 8308491 Code(s): K57.32 - DVTRCLI OF LG INT W/O PERFORATION OR ABSCESS W/O BLEEDING Status: Acute Current Visit: Yes Qualifiers: Diverticulitis bleeding: unspecified bleeding status Diverticulitis complication: with perforation Qualified Code(s): K57.20 - Diverticulitis of large intestine with perforation and abscess without bleeding - Problem List Review Problem List Initiated/Reviewed/Updated: Yes - My Orders Last 24 Hours: My Active Orders 05/09/17 14:21 Sleep Education [OM.PC] Routine 05/09/17 14:22 Acetaminophen [Tylenol] 650 mg PO Q6H PRN 05/09/17 14:30 D5 1/2 NS w/ 20 mEq/L KCl 1,000 ml IV ASDIRECTED 05/09/17 18:26 Communication Order [RC] PER UNIT ROUTINE 05/09/17 21:22 Communication Order [RC] ASDIRECTED 05/10/17 Lunch Clear Liquid Diet [DIET] 05/11/17 05:10 CREATININE W/GFR [CHEM] DAILY 05/11/17 05:11 BLOOD UREA NITROGEN,BUN [CHEM] AM CALCIUM [CHEM] AM CBC WITH AUTO DIFF [HEME] AM CRP [C-REACTIVE PROTEIN] [CHEM] AM ELECTROLYTES,LYTES [CHEM] AM MAGNESIUM [CHEM] AM PHOSPHORUS [CHEM] AM - Assessment Assessment:: 56 yo female, HD#3 for acute descending colon diverticulitis, with small phlegmon (Hinchy I). - Plan Plan:: Mrs. Mcrae is a 56 yo female, history of hypertension, presenting with acute LEFT-sided colonic diverticulitis, with small pericolonic/mesenteric phlegmon ( Hinchey I), HD#3. Overall clinical improvement, with decreased abdominal pain, but continued need for IV Dilaudid for pain control. WBC normal, and CRP is decreased (15 to 7). - Continue IV Zosyn. - Start clear liquid diet. - Continue Dilaudid PRN and Tylenol PRN for headaches. - Hold home dose of lisinopril (SBP overnight and today has been 120-130's). - Continue heparin SQ for DVT prophylaxis. - Encourage ambulation and IS - If patient continues to improve, will consider transitioning to oral pain medication and oral antibiotics tomorrow. Grey Tran M.D., F.A.C.S. General Surgery Pager: [phone]
[2017-05-10] MEDS: Lisinopril 10 MG Tab PO SCH (13:23)
[2017-05-10] MEDS: Ondansetron 4 MG/2 ML SDV IVPUSH PRN (21:05)
[2017-05-11] MEDS: D5 1/2 NS w/ 20 mEq/L KCl 1,000 ML IV SCH (03:05)
[2017-05-11] MEDS: HYDROmorphone 0.5 MG/0.5 ML SYRINGE IVPUSH PRN ×3 (03:12→10:06)
[2017-05-11] MEDS: Acetaminophen 325 MG Tab PO PRN (06:33)
[2017-05-11] MEDS: Heparin Sodium 5,000 Units/ML Vial SUBCUT SCH ×3 (06:33→21:31)
[2017-05-11] MEDS: Piperacillin/Tazobactam 4.5 GM in Sodium Chloride 0.9% 100 ML IV SCH ×3 (06:34→21:31)
[2017-05-11] MEDS: Lisinopril 10 MG Tab PO SCH (09:01)
[2017-05-11] MEDS ORDERED: Sodium Chloride 0.9% 10 ML Syringe FLUSH PRN (13:15)
--- NOTE | 2017-05-11 13:19 | PCM.PN ---
- General Info Date of Service: 05/11/17 Subjective Update: Overnight, no acute events. Home dose of lisinopril was resumed. Pain in the LEFT abdomen continues to decrease. Pain well-controlled with PRN Dilaudid. Denies nausea/emesis. Has been tolerating clear liquid diet. She had two very small watery bowel movements this morning. Has been ambulating multiples times around the [place]ópez. - Patient Data Vitals - Most Recent: Last Vital Signs Temp 36.6 C 05/11/17 08:59 Pulse 80 05/11/17 08:59 Resp 16 05/11/17 08:59 BP 146/98 H 05/11/17 09:01 Pulse Ox 93 L 05/11/17 08:59 Weight - Most Recent: 72.983 kg I&O - Last 24 Hours: Intake & Output 05/10/17 05/11/17 05/11/17 22:59 06:59 14:59 Intake Total 1060 1055 480 Output Total 1250 950 500 Balance -190 105 -20 Lab Results Last 24 Hours: Laboratory Results - last 24 hr 05/11/17 05/11/17 Range/Units 05:23 05:23 WBC 4.67 (3.98-10.04) K/mm3 RBC 3.55 L (3.98-5.22) M/mm3 Hgb 12.7 (11.2-15.7) gm/L Hct 37.6 (34.1-44.9) % MCV 105.9 H (79.4-94.8) fl MCH 35.8 H (25.6-32.2) pg MCHC 33.8 (32.2-35.5) g/dl RDW Std Deviation 46.4 H (36.4-46.3) fL Plt Count 265 (182-369) K/mm3 MPV 10.9 (9.4-12.3) fl Neut % (Auto) 44.7 (34.0-71.1) % Lymph % (Auto) 34.5 (19.3-51.7) % [place] % (Auto) 13.1 H (4.7-12.5) % Eos % (Auto) 7.1 H (0.7-5.8) Baso % (Auto) 0.4 (0.1-1.2) % Neut # (Auto) 2.09 (1.56-6.13) K/mm3 Lymph # (Auto) 1.61 (1.18-3.74) K/mm3 [place] # (Auto) 0.61 H (0.24-0.36) K/mm3 Eos # (Auto) 0.33 (0.04-0.36) K/mm3 Baso # (Auto) 0.02 (0.01-0.08) K/mm3 Manual Slide Review Abnormal smear Sodium 140 (136-145) mEq/L Potassium 3.4 L (3.5-5.1) mEq/L Chloride 106 (98-107) mEq/L Carbon Dioxide 27 (21-32) mEq/L Anion Gap 10.4 (5-15) BUN 4 L (7-18) mg/dL Creatinine 0.6 (0.55-1.02) mg/dL Est Cr Clr Drug Dosing 99.39 mL/min Estimated GFR (MDRD) > 60 (>60) mL/min Calcium 8.5 (8.5-10.1) mg/dL Phosphorus 3.4 (2.6-4.7) mg/dL Magnesium 1.8 (1.8-2.4) mg/dl C-Reactive Protein 4.5 H* (<1.0) mg/dL Gigi Results Last 24 Hours: Microbiology 05/08/17 15:56 Urine Culture - Preliminary Urine, Bladder 05/08/17 19:55 Aerobic Blood Culture - Preliminary Blood - Venous - Lab Draw NO GROWTH AFTER 2 DAYS Anaerobic Blood Culture - Preliminary NO GROWTH AFTER 2 DAYS 05/08/17 19:45 Aerobic Blood Culture - Preliminary Blood - Venous NO GROWTH AFTER 2 DAYS Anaerobic Blood Culture - Preliminary NO GROWTH AFTER 2 DAYS Med Orders - Current: Current Medications Acetaminophen (Tylenol) 650 mg PO Q6H PRN PRN Reason: Headache Last Admin: 05/11/17 06:33 Dose: 650 mg Heparin Sodium (Porcine) (Heparin Sodium) 5,000 units SUBCUT Q8H [facility] Last Admin: 05/11/17 06:33 Dose: 5,000 units Hydromorphone HCl (Dilaudid) 0.2 - 0.6 mg IVPUSH Q2H PRN PRN Reason: Pain Last Admin: 05/11/17 10:06 Dose: 0.4 mg Piperacillin Sod/Tazobactam (Sod 4.5 gm/ Sodium Chloride) 100 mls @ 25 mls/hr IV Q8H [facility] Last Admin: 05/11/17 06:34 Dose: 33.333 mls/hr Promethazine HCl 12.5 mg/ (Sodium Chloride) 50.5 mls @ 100 mls/hr IV Q6H PRN PRN Reason: Nausea Last Admin: 05/09/17 21:40 Dose: 100 mls/hr Potassium Chloride/Dextrose/Sod Cl (D5 1/2 Ns W/ 20 Meq/L Kcl) 1,000 mls @ 125 mls/hr IV ASDIRECTED [facility] Last Admin: 05/11/17 03:05 Dose: 125 mls/hr Lisinopril (Prinivil) 10 mg PO DAILY [facility] Last Admin: 05/11/17 09:01 Dose: 10 mg Ondansetron HCl (Zofran) 4 mg IVPUSH Q4H PRN PRN Reason: Nausea Last Admin: 05/10/17 21:05 Dose: 4 mg Sodium Chloride (Saline Flush) 10 ml FLUSH ONETIME PRN PRN Reason: Keep Vein Open Last Admin: 05/08/17 19:27 Dose: 10 ml Discontinued Medications Diatrizoate Meglum/Diatrizoate Sod (Gastrografin 37%) 90 ml PO ONETIME ONE Stop: 05/08/17 19:14 Last Admin: 05/08/17 19:26 Dose: 90 ml Hydromorphone HCl (Dilaudid) 0.5 mg IVPUSH ONETIME ONE Stop: 05/08/17 17:48 Last Admin: 05/08/17 17:59 Dose: 0.5 mg Hydromorphone HCl (Dilaudid) 0.5 mg IVPUSH ONETIME ONE Stop: 05/08/17 19:03 Last Admin: 05/08/17 19:11 Dose: 0.5 mg Sodium Chloride (Normal Saline) 1,000 mls @ 999 mls/hr IV ONETIME ONE Stop: 05/08/17 18:47 Last Admin: 05/08/17 17:58 Dose: 999 mls/hr Levofloxacin/Dextrose 750 mg/ (Premix) 150 mls @ 100 mls/hr IV ONETIME ONE Stop: 05/08/17 21:30 Last Admin: 05/08/17 20:12 Dose: 100 mls/hr Metronidazole 500 mg/ Premix 100 mls @ 100 mls/hr IV ONETIME ONE Stop: 05/08/17 21:00 Last Admin: 05/08/17 20:15 Dose: 100 mls/hr Sodium Chloride (Normal Saline) 1,000 mls @ 125 mls/hr IV ONETIME ONE Stop: 05/09/17 04:09 Last Admin: 05/08/17 20:15 Dose: 125 mls/hr Sodium Chloride (Normal Saline) 1,000 mls @ 125 mls/hr IV ASDIRECTED [facility] Stop: 05/09/17 20:40 Last Admin: 05/09/17 12:39 Dose: 125 mls/hr Iopamidol (Isovue-300 (61%)) 125 ml IVPUSH ONETIME ONE Stop: 05/08/17 19:14 Last Admin: 05/08/17 19:26 Dose: 125 ml Ondansetron HCl (Zofran) 4 mg IVPUSH ONETIME ONE Stop: 05/08/17 17:48 Last Admin: 05/08/17 17:58 Dose: 4 mg Ondansetron HCl (Zofran) 4 mg IVPUSH Q8H PRN PRN Reason: Nausea/Vomiting Comments:: UOP >100 cc/hr past 24 hours - Exam General: Alert, Oriented GI/Abdominal Exam: Soft, Tender (mildly tender to the LEFT abdomen) - Problem List & Annotations (1) Diverticulitis large intestine SNOMED Code(s): 3483649 Code(s): K57.32 - DVTRCLI OF LG INT W/O PERFORATION OR ABSCESS W/O BLEEDING Status: Acute Current Visit: Yes Qualifiers: Diverticulitis bleeding: unspecified bleeding status Diverticulitis complication: with perforation Qualified Code(s): K57.20 - Diverticulitis of large intestine with perforation and abscess without bleeding - Problem List Review Problem List Initiated/Reviewed/Updated: Yes - My Orders Last 24 Hours: My Active Orders 05/10/17 13:15 Lisinopril [Prinivil] 10 mg PO DAILY 05/11/17 13:15 Acetaminophen/oxyCODONE [Percocet 325-5 MG] 1 - 2 tab PO Q4H PRN Sodium Chloride 0.9% [Saline Flush] 10 ml FLUSH ASDIRECTED PRN Convert IV to Saline Lock [OM.PC] Routine 05/11/17 Dinner Full Liquid Diet [DIET] - Assessment Assessment:: 56 yo female, HD#4 for acute descending colon diverticulitis, with small phlegmon (Hinchy I). - Plan Plan:: Mrs. Mcrae is a 56 yo female, history of hypertension, presenting with acute LEFT-sided colonic diverticulitis, with small pericolonic/mesenteric phlegmon ( Hinchey I), HD#4. Continued clinical improvement. Still requiring IV narcotics for pain control. - Continue IV Zosyn. - Advance to full liquid diet with protein supplement. - SLIV. - Transition to oral pain medication (Percocet). - Continue home dose of lisinopril. - Continue heparin SQ for DVT prophylaxis. - Encourage ambulation and IS. - Anticipate discharge home tomorrow. Will continue antibiotics as outpatient. - Will schedule colonoscopy as outpatient. Grey Tran M.D., F.A.C.S. General Surgery Pager: [phone]
[2017-05-11] MEDS: Acetaminophen/oxyCODONE 325-5 MG Tab PO PRN ×2 (14:10→21:29)
[2017-05-12] MEDS: Piperacillin/Tazobactam 4.5 GM in Sodium Chloride 0.9% 100 ML IV SCH (06:22)
[2017-05-12] MEDS: Heparin Sodium 5,000 Units/ML Vial SUBCUT SCH (06:22)
[2017-05-12] MEDS: Acetaminophen/oxyCODONE 325-5 MG Tab PO PRN ×2 (08:28→09:17)
[2017-05-12] MEDS: Lisinopril 10 MG Tab PO SCH (08:28)
--- NOTE | 2017-05-12 12:04 | PCM.PN ---
- General Info Date of Service: 05/12/17 Subjective Update: Overnight, no acute events. LEFT-sided abdominal pain improved, controlled with Percocet PRN. No nausea. Tolerating full liquid diet yesterday and regular diet today. - Patient Data Vitals - Most Recent: Last Vital Signs Temp 36.3 C 05/12/17 07:38 Pulse 86 05/12/17 08:27 Resp 16 05/12/17 07:38 BP 126/95 H 05/12/17 08:28 Pulse Ox 96 05/12/17 08:27 Weight - Most Recent: 71.985 kg I&O - Last 24 Hours: Intake & Output 05/11/17 05/12/17 05/12/17 22:59 06:59 14:59 Intake Total 2625 600 300 Output Total 1400 700 200 Balance 1225 -100 100 Gigi Results Last 24 Hours: Microbiology 05/08/17 19:55 Aerobic Blood Culture - Preliminary Blood - Venous - Lab Draw NO GROWTH AFTER 3 DAYS Anaerobic Blood Culture - Preliminary NO GROWTH AFTER 3 DAYS 05/08/17 19:45 Aerobic Blood Culture - Preliminary Blood - Venous NO GROWTH AFTER 3 DAYS Anaerobic Blood Culture - Preliminary NO GROWTH AFTER 3 DAYS 05/08/17 15:56 Urine Culture - Final Urine, Bladder Med Orders - Current: Current Medications Acetaminophen (Tylenol) 650 mg PO Q6H PRN PRN Reason: Headache Last Admin: 05/11/17 06:33 Dose: 650 mg Heparin Sodium (Porcine) (Heparin Sodium) 5,000 units SUBCUT Q8H [facility] Last Admin: 05/12/17 06:22 Dose: 5,000 units Hydromorphone HCl (Dilaudid) 0.2 - 0.6 mg IVPUSH Q2H PRN PRN Reason: Pain Last Admin: 05/11/17 10:06 Dose: 0.4 mg Piperacillin Sod/Tazobactam (Sod 4.5 gm/ Sodium Chloride) 100 mls @ 25 mls/hr IV Q8H ALEXANDRA Last Admin: 05/12/17 06:22 Dose: 33.333 mls/hr Promethazine HCl 12.5 mg/ (Sodium Chloride) 50.5 mls @ 100 mls/hr IV Q6H PRN PRN Reason: Nausea Last Admin: 05/09/17 21:40 Dose: 100 mls/hr Lisinopril (Prinivil) 10 mg PO DAILY ALEXANDRA Last Admin: 05/12/17 08:28 Dose: 10 mg Ondansetron HCl (Zofran) 4 mg IVPUSH Q4H PRN PRN Reason: Nausea Last Admin: 05/10/17 21:05 Dose: 4 mg Oxycodone/Acetaminophen (Percocet 325-5 Mg) 1 - 2 tab PO Q4H PRN PRN Reason: Pain Last Admin: 05/12/17 09:17 Dose: 1 tab Sodium Chloride (Saline Flush) 10 ml FLUSH ONETIME PRN PRN Reason: Keep Vein Open Last Admin: 05/08/17 19:27 Dose: 10 ml Sodium Chloride (Saline Flush) 10 ml FLUSH ASDIRECTED PRN PRN Reason: Keep Vein Open Discontinued Medications Diatrizoate Meglum/Diatrizoate Sod (Gastrografin 37%) 90 ml PO ONETIME ONE Stop: 05/08/17 19:14 Last Admin: 05/08/17 19:26 Dose: 90 ml Hydromorphone HCl (Dilaudid) 0.5 mg IVPUSH ONETIME ONE Stop: 05/08/17 17:48 Last Admin: 05/08/17 17:59 Dose: 0.5 mg Hydromorphone HCl (Dilaudid) 0.5 mg IVPUSH ONETIME ONE Stop: 05/08/17 19:03 Last Admin: 05/08/17 19:11 Dose: 0.5 mg Sodium Chloride (Normal Saline) 1,000 mls @ 999 mls/hr IV ONETIME ONE Stop: 05/08/17 18:47 Last Admin: 05/08/17 17:58 Dose: 999 mls/hr Levofloxacin/Dextrose 750 mg/ (Premix) 150 mls @ 100 mls/hr IV ONETIME ONE Stop: 05/08/17 21:30 Last Admin: 05/08/17 20:12 Dose: 100 mls/hr Metronidazole 500 mg/ Premix 100 mls @ 100 mls/hr IV ONETIME ONE Stop: 05/08/17 21:00 Last Admin: 05/08/17 20:15 Dose: 100 mls/hr Sodium Chloride (Normal Saline) 1,000 mls @ 125 mls/hr IV ONETIME ONE Stop: 05/09/17 04:09 Last Admin: 05/08/17 20:15 Dose: 125 mls/hr Sodium Chloride (Normal Saline) 1,000 mls @ 125 mls/hr IV ASDIRECTED ALEXANDRA Stop: 05/09/17 20:40 Last Admin: 05/09/17 12:39 Dose: 125 mls/hr Potassium Chloride/Dextrose/Sod Cl (D5 1/2 Ns W/ 20 Meq/L Kcl) 1,000 mls @ 125 mls/hr IV ASDIRECTED ALEXANDRA Last Admin: 05/11/17 03:05 Dose: 125 mls/hr Iopamidol (Isovue-300 (61%)) 125 ml IVPUSH ONETIME ONE Stop: 05/08/17 19:14 Last Admin: 05/08/17 19:26 Dose: 125 ml Ondansetron HCl (Zofran) 4 mg IVPUSH ONETIME ONE Stop: 05/08/17 17:48 Last Admin: 05/08/17 17:58 Dose: 4 mg Ondansetron HCl (Zofran) 4 mg IVPUSH Q8H PRN PRN Reason: Nausea/Vomiting - Exam GI/Abdominal Exam: Soft, Tender (mildly tender to the LEFT abdomen.) - Problem List & Annotations (1) Diverticulitis large intestine SNOMED Code(s): 6481578 Code(s): K57.32 - DVTRCLI OF LG INT W/O PERFORATION OR ABSCESS W/O BLEEDING Status: Acute Current Visit: Yes Qualifiers: Diverticulitis bleeding: unspecified bleeding status Diverticulitis complication: with perforation Qualified Code(s): K57.20 - Diverticulitis of large intestine with perforation and abscess without bleeding - Problem List Review Problem List Initiated/Reviewed/Updated: Yes - My Orders Last 24 Hours: My Active Orders 05/11/17 13:15 Acetaminophen/oxyCODONE [Percocet 325-5 MG] 1 - 2 tab PO Q4H PRN Sodium Chloride 0.9% [Saline Flush] 10 ml FLUSH ASDIRECTED PRN Convert IV to Saline Lock [OM.PC] Routine 05/11/17 17:27 Dietary Supplements [RC] TIDAC 05/12/17 Lunch Regular Diet [DIET] - Assessment Assessment:: 56 yo female, HD#5 for acute descending colon diverticulitis, with small phlegmon (Hinchy I). - Plan Plan:: Mrs. Mcrae is a 56 yo female, history of hypertension, presenting with acute LEFT-sided colonic diverticulitis, with small pericolonic/mesenteric phlegmon ( Hinchey I), HD#5. Clinically improved, with pain controlled with oral pain medication. - Discharge home today. - Transition to oral antibiotics (Augmentin/Flagyl), to complete an additional 10 days (total of 14 days of antibiotics). - Will have patient F/U as outpatient to discuss colonoscopy. Grey Tran M.D., F.A.C.S. General Surgery Pager: [phone]
--- NOTE | 2017-05-12 13:55 | PCM.DCSUM1 ---
Discharge Summary - Hospital Course Free Text/Narrative:: The patient was admitted on 08May2017 with acute LEFT-sided colonic diverticulitis, with CT findings of a surounding phlegmon around the distal descending colon, along with a very small pocket of extraluminal air. This was the patient's first episode of colonic diverticulitis, and she has never had a colonoscopy. The patient was placed on bowel rest and IV antibiotics (IV Zosyn) , with gradual improvement in her symptoms. Her diet was slowly advanced, and she was transitioned to oral pain medication. Her vitals remained normal and her urine output was excellent throughout her hospitalization. By HD#5, she met discharge criteria. She will be discharged home on an additional 10 days of oral antibiotics (Augmentin and Flagyl) to complete a total of 14 days of antibiotics. She was also instructed to follow-up to schedule a colonoscopy in about 2 months. - Discharge Data Discharge Date: 05/12/17 Discharge Disposition: Home, Self-Care 01 Condition: Good - Discharge Diagnosis/Problem(s) (1) Diverticulitis large intestine SNOMED Code(s): 0085101 ICD Code: K57.32 - DVTRCLI OF LG INT W/O PERFORATION OR ABSCESS W/O BLEEDING Status: Acute Current Visit: Yes Qualifiers: Diverticulitis bleeding: unspecified bleeding status Diverticulitis complication: with perforation Qualified Code(s): K57.20 - Diverticulitis of large intestine with perforation and abscess without bleeding - Patient Summary/Data Labs Pending at D/C: Blood culture were preliminary negative for 3 days. Recommended Follow-up Testing/Procedures: Colonoscopy to be scheduled as an outpatient. Planned Operative Procedure(s) after DC: Colonoscopy - Patient Instructions Diet: GI Soft/Low Residue/Low Fiber Notify Provider of: Fever, Increased Pain, Nausea and/or Vomiting - Discharge Plan Prescriptions/Med Rec: Amoxicillin/Potassium Clav [Augmentin 875-125 Tablet] 1 each PO BID 10 Days #20 tablet metroNIDAZOLE [Flagyl] 500 mg PO Q8H 10 Days #30 tab oxyCODONE HCl/Acetaminophen [Percocet 5-325 mg Tablet] 1 - 2 each PO Q4H PRN # 25 tablet PRN Reason: Pain Home Medications: Home Meds Lisinopril 10 mg PO DAILY 05/08/17 [History] Amoxicillin/Potassium Clav [Augmentin 875-125 Tablet] 1 each PO BID 10 Days #20 tablet 05/12/17 [Rx] metroNIDAZOLE [Flagyl] 500 mg PO Q8H 10 Days #30 tab 05/12/17 [Rx] oxyCODONE HCl/Acetaminophen [Percocet 5-325 mg Tablet] 1 - 2 each PO Q4H PRN # 25 tablet 05/12/17 [Rx] Patient Handouts: Diverticulitis, [id number] Referrals: Grey Tran MD [Physician] - (Call in one month to make an appointment for July 2017, to discuss colonoscopy.) - Discharge Summary/Plan Comment DC Time >30 min.: No - General Info Date of Service: 05/12/17 Subjective Update: See progress note for details. Pain improved. - Patient Data Vitals - Most Recent: Last Vital Signs Temp 36.3 C 05/12/17 07:38 Pulse 86 05/12/17 08:27 Resp 16 05/12/17 07:38 BP 126/95 H 05/12/17 08:28 Pulse Ox 96 05/12/17 08:27 Weight - Most Recent: 71.985 kg I&O - Last 24 hours: Intake & Output 05/11/17 05/12/17 05/12/17 22:59 06:59 14:59 Intake Total 2625 600 700 Output Total 1400 700 600 Balance 1225 -100 100 PHILIPPE Results - Last 24 hrs: Microbiology 05/08/17 19:55 Aerobic Blood Culture - Preliminary Blood - Venous - Lab Draw NO GROWTH AFTER 3 DAYS Anaerobic Blood Culture - Preliminary NO GROWTH AFTER 3 DAYS 05/08/17 19:45 Aerobic Blood Culture - Preliminary Blood - Venous NO GROWTH AFTER 3 DAYS Anaerobic Blood Culture - Preliminary NO GROWTH AFTER 3 DAYS 05/08/17 15:56 Urine Culture - Final Urine, Bladder Med Orders - Current: Current Medications Acetaminophen (Tylenol) 650 mg PO Q6H PRN PRN Reason: Headache Last Admin: 05/11/17 06:33 Dose: 650 mg Heparin Sodium (Porcine) (Heparin Sodium) 5,000 units SUBCUT Q8H ALEXANDRA Last Admin: 05/12/17 06:22 Dose: 5,000 units Hydromorphone HCl (Dilaudid) 0.2 - 0.6 mg IVPUSH Q2H PRN PRN Reason: Pain Last Admin: 05/11/17 10:06 Dose: 0.4 mg Piperacillin Sod/Tazobactam (Sod 4.5 gm/ Sodium Chloride) 100 mls @ 25 mls/hr IV Q8H ALEXANDRA Last Admin: 05/12/17 06:22 Dose: 33.333 mls/hr Promethazine HCl 12.5 mg/ (Sodium Chloride) 50.5 mls @ 100 mls/hr IV Q6H PRN PRN Reason: Nausea Last Admin: 05/09/17 21:40 Dose: 100 mls/hr Lisinopril (Prinivil) 10 mg PO DAILY ALEXANDRA Last Admin: 05/12/17 08:28 Dose: 10 mg Ondansetron HCl (Zofran) 4 mg IVPUSH Q4H PRN PRN Reason: Nausea Last Admin: 05/10/17 21:05 Dose: 4 mg Oxycodone/Acetaminophen (Percocet 325-5 Mg) 1 - 2 tab PO Q4H PRN PRN Reason: Pain Last Admin: 05/12/17 09:17 Dose: 1 tab Sodium Chloride (Saline Flush) 10 ml FLUSH ONETIME PRN PRN Reason: Keep Vein Open Last Admin: 05/08/17 19:27 Dose: 10 ml Sodium Chloride (Saline Flush) 10 ml FLUSH ASDIRECTED PRN PRN Reason: Keep Vein Open Discontinued Medications Diatrizoate Meglum/Diatrizoate Sod (Gastrografin 37%) 90 ml PO ONETIME ONE Stop: 05/08/17 19:14 Last Admin: 05/08/17 19:26 Dose: 90 ml Hydromorphone HCl (Dilaudid) 0.5 mg IVPUSH ONETIME ONE Stop: 05/08/17 17:48 Last Admin: 05/08/17 17:59 Dose: 0.5 mg Hydromorphone HCl (Dilaudid) 0.5 mg IVPUSH ONETIME ONE Stop: 05/08/17 19:03 Last Admin: 05/08/17 19:11 Dose: 0.5 mg Sodium Chloride (Normal Saline) 1,000 mls @ 999 mls/hr IV ONETIME ONE Stop: 05/08/17 18:47 Last Admin: 05/08/17 17:58 Dose: 999 mls/hr Levofloxacin/Dextrose 750 mg/ (Premix) 150 mls @ 100 mls/hr IV ONETIME ONE Stop: 05/08/17 21:30 Last Admin: 05/08/17 20:12 Dose: 100 mls/hr Metronidazole 500 mg/ Premix 100 mls @ 100 mls/hr IV ONETIME ONE Stop: 05/08/17 21:00 Last Admin: 05/08/17 20:15 Dose: 100 mls/hr Sodium Chloride (Normal Saline) 1,000 mls @ 125 mls/hr IV ONETIME ONE Stop: 05/09/17 04:09 Last Admin: 05/08/17 20:15 Dose: 125 mls/hr Sodium Chloride (Normal Saline) 1,000 mls @ 125 mls/hr IV ASDIRECTED [facility] Stop: 05/09/17 20:40 Last Admin: 05/09/17 12:39 Dose: 125 mls/hr Potassium Chloride/Dextrose/Sod Cl (D5 1/2 Ns W/ 20 Meq/L Kcl) 1,000 mls @ 125 mls/hr IV ASDIRECTED [facility] Last Admin: 05/11/17 03:05 Dose: 125 mls/hr Iopamidol (Isovue-300 (61%)) 125 ml IVPUSH ONETIME ONE Stop: 05/08/17 19:14 Last Admin: 05/08/17 19:26 Dose: 125 ml Ondansetron HCl (Zofran) 4 mg IVPUSH ONETIME ONE Stop: 05/08/17 17:48 Last Admin: 05/08/17 17:58 Dose: 4 mg Ondansetron HCl (Zofran) 4 mg IVPUSH Q8H PRN PRN Reason: Nausea/Vomiting - Exam GI/Abdominal Exam: Soft, Tender (minimally tender to the LEFT abdomen)
== END 2017-05-12 14:24 | disposition home or self-care (01) | DRG 244 ==
LOC: JD.ED 17:08 → JD.MS 21:02
PROVIDERS: ADMIT Student in an Organized Health Care Education/Training Program; ATTEND Student in an Organized Health Care Education/Training Program
DX: K57.20 Diverticulitis of large intestine with perforation and abscess without bleeding (principal); R51 Headache; I10 Essential (primary) hypertension; Z87.891 Personal history of nicotine dependence; Z79.899 Other long term (current) drug therapy; R10.9 Unspecified abdominal pain
CPT/HCPCS: 36415; 74019; 74019-26; 74177; 74177-26; 80051; 80053; 81001; 82310; 82565; 83605; 83690; 83735; 84100; 84520; 85025; 86140; 87040; 87086; 93005; 93010; 96361; 96365; 96375; 96376; 99284; 99285-25; A9270-GY; J1170; J1644; J1956; J2405; J2543; J2550; J3480; J7030; J7040; J7050; Q9963; Q9967

== ENCOUNTER 2017-09-26 06:55 | Day surgery (SDC) | payer BC ==
[~2017-09-26 06:55] MED LIST: Lactated Ringers 1,000 ML IV SCH; Lidocaine 1%/Sod Bicarbonate in NS 8.4% 1 ML Syringe IDERM PRN; Sodium Chloride 0.9% 10 ML Syringe FLUSH PRN
--- NOTE | 2017-09-26 07:28 | PCM.PREANE ---
Preanesthetic Assessment - Anesthesia/Transfusion/Family Hx Anesthesia History: Prior Anesthesia Without Reaction Family History of Anesthesia Reaction: No Transfusion History: No Prior Transfusion(s) - Review of Systems General: No Symptoms Pulmonary: No Symptoms Cardiovascular: No Symptoms Gastrointestinal: No Symptoms Neurological: No Symptoms Other: Reports: None - Physical Assessment NPO Status Date: 09/25/17 NPO Status Time: 00:00 Pulse: 87 O2 Sat by Pulse Oximetry: 97 Respiratory Rate: 16 Blood Pressure: 150/111 Temperature: 36.8 C Height: 1.7 m Weight: 68.855 kg ASA Class: 2 Mental Status: Alert & Oriented x3 Airway Class: Mallampati = 2 Dentition: Reports: Normal Dentition, [place](s) Thyro-Mental Finger Breadths: 3 Mouth Opening Finger Breadths: 3 ROM/Head Extension: Full Lungs: Clear to Auscultation, Normal Respiratory Effort Cardiovascular: Regular Rate, Regular Rhythm, No Murmurs, Tachycardia - Allergies Allergies/Adverse Reactions: Allergies Allergy/AdvReac Type Severity Reaction Status Date / Time No Known Allergies Allergy Verified 09/25/17 08:23 - Blood Blood Available: No Product(s) Available: None - Anesthesia Plan Pre-Op Medication Ordered: None - Acknowledgements Anesthesia Type Planned: MAC Pt an Appropriate Candidate for the Planned Anesthesia: Yes Alternatives and Risks of Anesthesia Discussed w Pt/Guardian: Yes Pt/Guardian Understands and Agrees with Anesthesia Plan: Yes PreAnesthesia Questionnaire HEENT History: Reports: None Cardiovascular History: Reports: High Cholesterol, Hypertension Respiratory History: Reports: Other (See Below) Other Respiratory History: bronchitis, cough Gastrointestinal History: Reports: Other (See Below) Other Gastrointestinal History: diveticulitis, elevated LFTs Genitourinary History: Reports: None 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 OB/BYN History: 2 pregnancies Musculoskeletal History: Reports: Other (See Below) Other Musculoskeletal History: low back pain, lumbar disc herniation, lumbosacral radiculopathy, degenerative joint disease Neurological History: Reports: None Psychiatric History: Reports: None Endocrine/Metabolic History: Reports: None Hematologic History: Reports: None Immunologic History: Reports: None Oncologic (Cancer) History: Reports: None Dermatologic History: Reports: None - Past Surgical History Head Surgeries/Procedures: Reports: None HEENT Surgical History: Reports: None Respiratory Surgical History: Reports: None GI Surgical History: Reports: None Female Surgical History: Reports: Breast Implant, Hysterectomy Endocrine Surgical History: Reports: None Neurological Surgical History: Reports: Lumbar Spine Musculoskeletal Surgical History: Reports: None Oncologic Surgical History: Reports: None Dermatological Surgical History: Reports: None - SUBSTANCE USE Smoking Status *Q: Former Smoker Tobacco Use Within Last Twelve Months: No Second Hand Smoke Exposure: No Days Per Week of Alcohol Use: 1 Number of Drinks Per Day: 0 Total Drinks Per Week: 0 Recreational Drug Use History: No - HOME MEDS Home Medications: Home Meds Lisinopril 10 mg PO DAILY 05/08/17 [History] Lactobacillus Acidophilus [Probiotic] 1 cap PO DAILY 09/25/17 [History] Multivitamin [Poly-Vitamin] 1 tab PO DAILY 09/25/17 [History] - CURRENT (IN HOUSE) MEDS Current Meds: Current Medications Lactated Ringer's (Ringers, Lactated) 1,000 mls @ 125 mls/hr IV ASDIRECTED ALEXANDRA Lidocaine/Sodium Bicarbonate (Buffered Lidocaine 1% In Ns 8.4%) 0.25 ml IDERM ONETIME PRN PRN Reason: Prior to IV Start Sodium Chloride (Saline Flush) 10 ml FLUSH ASDIRECTED PRN PRN Reason: Keep Vein Open
[2017-09-26] MEDS ORDERED: fentaNYL 100 MCG/2 ML SDV ONE (07:33)
[2017-09-26] MEDS ORDERED: Propofol 200 MG/20 ML SDV ONE ×2 (07:33→08:09)
[2017-09-26] MEDS ORDERED: Lidocaine 1% 4 ML ONE (07:33)
[2017-09-26] MEDS ORDERED: Midazolam 1 MG/ML 2 ML SDV ONE (07:33)
--- NOTE | 2017-09-26 07:55 | PCM.HP ---
H&P History of Present Illness - General Date of Service: 09/26/17 Admit Problem/Dx: Colonoscopy Source of Information: Patient History Limitations: Reports: No Limitations - History of Present Illness Initial Comments - Free Text/Narative: UPDATE OF H&P. CLINIC H&P WAS PERFORMED ON [id number]. 57 yo female, no prior colonoscopy, was admitted in late May with Hinchey I sigmoid colonic diverticulitis (with phlegmon around the LEFT colon and small focus of extraluminal air), managed with IV antibiotics. She was seen in clinic in mid July 2017, and was consented then for a colonoscopy, with possible biopsy. Associated Symptoms: Reports: No Other Symptoms - Related Data Allergies/Adverse Reactions: Allergies Allergy/AdvReac Type Severity Reaction Status Date / Time No Known Allergies Allergy Verified 09/25/17 08:23 Home Medications: Home Meds Lisinopril 10 mg PO DAILY 05/08/17 [History] Lactobacillus Acidophilus [Probiotic] 1 cap PO DAILY 09/25/17 [History] Multivitamin [Poly-Vitamin] 1 tab PO DAILY 09/25/17 [History] Past Medical History HEENT History: Reports: None Cardiovascular History: Reports: High Cholesterol, Hypertension Gastrointestinal History: Reports: Other (See Below) Other Gastrointestinal History: diveticulitis, elevated LFTs Genitourinary History: Reports: None 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 OB/BYN History: 2 pregnancies Musculoskeletal History: Reports: Other (See Below) Other Musculoskeletal History: low back pain, lumbar disc herniation, lumbosacral radiculopathy, degenerative joint disease Neurological History: Reports: None Psychiatric History: Reports: None Endocrine/Metabolic History: Reports: None Hematologic History: Reports: None Immunologic History: Reports: None Oncologic (Cancer) History: Reports: None Dermatologic History: Reports: None - Past Surgical History Head Surgeries/Procedures: Reports: None HEENT Surgical History: Reports: None Respiratory Surgical History: Reports: None GI Surgical History: Reports: None Female Surgical History: Reports: Breast Implant, Hysterectomy (at age 33.) Endocrine Surgical History: Reports: None Neurological Surgical History: Reports: Lumbar Spine Musculoskeletal Surgical History: Reports: None Oncologic Surgical History: Reports: None Dermatological Surgical History: Reports: None Social & Family History - Family History Respiratory: Reports: COPD (Father had COPD/emphysema) GI: Reports: Bowel Obstruction (Father had colonic obstruction (from diverticular disease?), requiring surgery and colostomy) - Tobacco Use Smoking Status *Q: Former Smoker Used Tobacco, but Quit: Yes Month/Year Tobacco Last Used: 1984 Second Hand Smoke Exposure: No - Caffeine Use Caffeine Use: Reports: Coffee, Tea Other Caffeine Use: one cup a day - Alcohol Use Days Per Week of Alcohol Use: 1 Number of Drinks Per Day: 0 Total Drinks Per Week: 0 - Recreational Drug Use Recreational Drug Use: No Drug Use in Last 12 Months: No - Living Situation & Occupation Living situation: Reports: ( present at bedside), Other (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 Exam - Exam Exam: See Below - Vital Signs Vital Signs: Last Vital Signs Temp 36.8 C 09/26/17 07:29 Pulse 87 09/26/17 07:29 Resp 16 09/26/17 07:29 BP 150/111 H 09/26/17 07:29 Pulse Ox 97 09/26/17 07:29 Weight: 68.855 kg - Exam General: Alert, Oriented, Cooperative HEENT: Conjunctiva Clear Neck: Supple. No: Lymphadenopathy Lungs: Clear to Auscultation, Normal Respiratory Effort Cardiovascular: Regular Rate, Regular Rhythm, Normal S1, Normal S2 GI/Abdominal Exam: Soft, Non-Tender, No Distention, Other (well-healed infra- umbilical small surgical scar) Extremities: Normal Inspection Problem List Initiated/Reviewed/Updated: Yes Orders Last 24hrs: Active Orders 24 hr Category Date Time Status Peripheral IV Care [RC] . DIRECTED Care 09/26/17 00:01 Active Verify Patient Consent Obtain [RC] ASDIRECTED Care 09/26/17 00:01 Active Lactated Ringers [Ringers, Lactated] 1,000 ml Med 09/26/17 00:01 Active IV ASDIRECTED Lidocaine 1%/Sod Bicarbonate [Buffered Lidocaine 1% in Med 09/26/17 00:01 Active NS 8.4%] 0.25 ml IDERM ONETIME PRN Sodium Chloride 0.9% [Saline Flush] Med 09/26/17 00:01 Active 10 ml FLUSH ASDIRECTED PRN Medication Administration Instruction [OM.PC] Routine Oth 09/26/17 00:01 Ordered Peripheral IV Insertion Adult [OM.PC] Routine Oth 09/26/17 00:01 Ordered Medication Orders Lactated Ringer's (Ringers, Lactated) 1,000 mls @ 125 mls/hr IV ASDIRECTED ALEXANDRA Last Admin: 09/26/17 07:20 Dose: 125 mls/hr Lidocaine/Sodium Bicarbonate (Buffered Lidocaine 1% In Ns 8.4%) 0.25 ml IDERM ONETIME PRN PRN Reason: Prior to IV Start Last Admin: 09/26/17 07:20 Dose: 0.25 ml Sodium Chloride (Saline Flush) 10 ml FLUSH ASDIRECTED PRN PRN Reason: Keep Vein Open Assessment/Plan Comment:: 57 yo female, h/o HTN, with recent episode of sigmoid colonic diverticulitis ( 1st episode), managed with inpatient antibiotics, without need for procedural intervention. Patient has never had a colonoscopy, and will require one. No need for elective surgery for colonic diverticulitis. Bronchitis has resolved from July and patient is off antibiotics. - The patient was consented for a colonoscopy, with possible biopsy. Indications , risks, and benefits were discussed with the patient in detail. Risks include bleeding, infection, damage to the GI tract requiring a large operation to fix, need for additional procedures, inability to complete the procedure, and missed abnormalities. - She has completed the Golytely prep (split-prep). - She has held lisinopril this morning. Grey Tran M.D, F.A.C.S. General Surgery Pager; [phone]
--- NOTE | 2017-09-26 08:31 | PCM.OPNOTE ---
- General Post-Op/Procedure Note Date of Surgery/Procedure: 09/26/17 Operative Procedure(s): colonoscopy with biopsy Findings: 1) moderate sigmoid diverticulosis 2) mild ascending colon diverticulosis 3) small 4 mm sessile sigmoid colon polyp Pre Op Diagnosis: 1) history of sigmoid colonic diverticulitis. 2) screening colonoscopy Post-Op Diagnosis: 1) history of sigmoid colonic diverticulitis. 2) screening colonoscopy Anesthesia Technique: MAC Primary Surgeon: Grey Tran Anesthesia Provider: Lee Mercado Pathology: sigmoid colon polyp Condition: Good Free Text/Narrative:: Indications for surgery: The patient is 57 yo female, h/o sigmoid colon diverticulitis (Hinchey 1), also h/o of distant hysterectomy, requiring inpatient admission in late May 2017. She has never had a colonoscopy. She was consented for colonoscopy wtih possible biopsy. Indications, risks, and benefits were discussed with the patient in detail. Description of procedure: After surgical consent was verified, the patient was brought to the main OR. A surgical time-out was performed to verify proper patient and proper procedure. Anesthesia performed monitored anesthesia care. A digital rectal exam was performed, which was normal. The colonoscope was inserted into the anus and advanced through the colon to the cecum. There was a sharp angle in the area of the sigmoid colon, but the scope could be successfully advanced beyond this region. The terminal ileum was intubated, which appeared normal. The scope was then withdrawn, with inspection of the colonic mucosa. There was a small diverticulum in the ascending colon. There were several diverticuli in the sigmoid colon (moderate diverticulosis). A small 4 mm sessile polyp was found in the sigmoid colon, which was removed by cold forceps polypectomy. The remainder of the colon and rectum was normal. Withdrawal time was 8 minutes, including time spent performing polypectomy. There was minimal blood loss. The patient tolerated the procedure well, was brought out of anesthesia, and transported to the PACU in stable condition. Grey Tran M.D., F.A.C.S. General Surgery Pager: [phone]
== END 2017-09-26 09:18 | disposition home or self-care (01) ==
LOC: JD.SDS 06:55
PROVIDERS: ATTEND Student in an Organized Health Care Education/Training Program
DX: Z12.11 Encounter for screening for malignant neoplasm of colon (principal); K63.5 Polyp of colon; K57.30 Diverticulosis of large intestine without perforation or abscess without bleeding; I10 Essential (primary) hypertension; E78.00 Pure hypercholesterolemia, unspecified; Z87.891 Personal history of nicotine dependence; Z87.19 Personal history of other diseases of the digestive system; Z79.899 Other long term (current) drug therapy
CPT/HCPCS: J2001; J2250; J2704; J3010; J7120

== ENCOUNTER 2017-11-01 16:04 | Emergency (ER) | payer BC ==
[2017-11-01] MEDS ORDERED: Sodium Chloride 0.9% 10 ML Syringe FLUSH PRN (17:42)
[2017-11-01] MEDS ORDERED: methylPREDNISolone Sodium Succinate 125 MG/2 ML SDV IVPUSH ONE (17:43)
[2017-11-01] MEDS ORDERED: Ketorolac 30 MG/ML SDV IVPUSH SCH (17:45)
--- NOTE | 2017-11-01 17:58 | EDM.PDOC ---
<Jennifer Farah - Last Filed: 11/01/17 18:49> ED HPI GENERAL MEDICAL PROBLEM - General Chief Complaint: Back Pain or Injury Stated Complaint: BACK PAIN Time Seen by Provider: 11/01/17 17:21 Source of Information: Reports: Patient History Limitations: Reports: Other (exam limited by pain; pt cries in pain on exam) - History of Present Illness INITIAL COMMENTS - FREE TEXT/NARRATIVE: Samreen is a 57-year-old woman with medical history significant for HTN and diverticulosis/diverticulitis who reports acute onset of severe low back pain this morning at approximately 6am. Pt reports she started having mild "nagging" low back ache two weeks ago, which was relieved with Aleve. Over the night, she was helping a friend lift bags, but does not recall injuring her back. She returned home and went to bed at 6am. When she woke up at 11am, her back pain was so severe she had difficulty getting out of bed. She reports severe pain across her bilateral low back, with radiation of pain and numbness down her posterior right leg. She denies any loss of bowel or bladder control. No saddle anesthesia. She rates the pain 10/10. She does report similar symptoms in the past, when she had a herniated disc and right-sided sciatica. She had surgical decompression by Dr. Ezra Bingham 1.5 years ago with complete resolution of symptoms. Samreen is concerned about pain control over the weekend. Her PCP (Lawanda Knowles PA-C) is not in the office tomorrow (Sunday), so she won't have an appointment until early next week. In the past, her pain was controlled with hydrocodone, but her PCP switched her to oxycontin due to elevation of her liver transaminases. Quality: Reports: Same as Previous Episode (same as previous episode of right- sided sciatica; previous episode resolved with surgical decompression 1.5 years ago) Severity: Severe Treatments SOLAR SALES ADVISOR: Reports: Other (see below) Other Treatments SOLAR SALES ADVISOR: aleeve Lower Back Pain Score (Numeric/FACES): 7 - Related Data Allergies Allergy/AdvReac Type Severity Reaction Status Date / Time No Known Allergies Allergy Verified 09/25/17 08:23 Home Meds: Home Meds Lisinopril 10 mg PO DAILY 05/08/17 [History] Past Medical History HEENT History: Reports: None Cardiovascular History: Reports: Hypertension Respiratory History: Reports: Other (See Below) Other Respiratory History: bronchitis, cough Gastrointestinal History: Reports: Other (See Below) Other Gastrointestinal History: diveticulitis, elevated LFTs Genitourinary History: Reports: None 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: 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: 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: 2 pregnancies Musculoskeletal History: Reports: Other (See Below) Other Musculoskeletal History: low back pain, lumbar disc herniation, lumbosacral radiculopathy, degenerative joint disease Neurological History: Reports: None Psychiatric History: Reports: None Endocrine/Metabolic History: Reports: None Hematologic History: Reports: None Immunologic History: Reports: None Oncologic (Cancer) History: Reports: None Dermatologic History: Reports: None - Past Surgical History Head Surgeries/Procedures: Reports: None HEENT Surgical History: Reports: None Respiratory Surgical History: Reports: None GI Surgical History: Reports: None Female Surgical History: Reports: Breast Implant, Hysterectomy Endocrine Surgical History: Reports: None Neurological Surgical History: Reports: Lumbar Spine Musculoskeletal Surgical History: Reports: None Oncologic Surgical History: Reports: None Dermatological Surgical History: Reports: None Social & Family History - Family History Respiratory: Reports: COPD GI: Reports: Bowel Obstruction - Tobacco Use Smoking Status *Q: Never Smoker - Caffeine Use Caffeine Use: Reports: Coffee, Soda, Tea Other Caffeine Use: one cup a day - Recreational Drug Use Recreational Drug Use: No - Living Situation & Occupation Living situation: Reports: ( present at bedside), Other (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 Constitutional: Denies: Fever, Chills, Diaphoresis Respiratory: Reports: No Symptoms Cardiovascular: Reports: No Symptoms GI/Abdominal: Reports: No Symptoms Musculoskeletal: Reports: Back Pain (bilateral low back pain, as per HPI) Neurological: Reports: Numbness, Tingling. Denies: Weakness (no lower extremity weakness) ED EXAM,LOWER BACK PAIN/INJURY - Physical Exam Text/Narrative:: Pt in acute distress due to pain. Cries with minimal movement in bed. Hypertensive to 180/107 during exam. Exam Limited By: Physical Impairment (exam limited by pain) General Appearance: Alert, Moderate Distress Respiratory/Chest: Lungs Clear, Normal Breath Sounds Cardiovascular: Normal Peripheral Pulses, Regular Rate, Rhythm GI/Abdominal: Soft, Non-Tender Back Exam: Decreased Range of Motion, Other (back inspection limited by pain; pt unable to sit upright without severe pain. No vertebral tenderness appreciated. ). No: Vertebral Tenderness Extremities: Limited Range of Motion (limited by pain) Neurological: Alert, Normal Dorsiflexion, Normal Plantar Flexion, Normal Reflexes, No Motor/Sensory Deficits, Oriented x 3, Abnormal Gait (gait not tested due to pain), Straight Leg Raise (R) (straight-leg raise positive on the right; reproduction of pain at ~5* of right hip flexion ). No: Straight Leg Raise (L), Saddle Anesthesia Course - Vital Signs Last Recorded V/S: Last Vital Signs Temp 97.8 F 11/01/17 16:36 Pulse 90 11/01/17 19:43 Resp 16 11/01/17 19:43 BP 179/114 H 11/01/17 19:43 Pulse Ox 98 11/01/17 19:43 - Orders/Labs/Meds Orders: Active Orders 24 hr Category Date Time Status Peripheral IV Care [RC] . DIRECTED Care 11/01/17 17:43 Active Peripheral IV Insertion Adult [OM.PC] Stat Oth 11/01/17 17:42 Ordered Meds: Medications Discontinued Medications Generic Name Dose Route Start Last Admin Trade Name Freq PRN Reason Stop Dose Admin Hydromorphone HCl 1 mg 11/01/17 17:42 11/01/17 18:38 Dilaudid IVPUSH 11/01/17 17:43 0.5 mg ONETIME ONE Administration Ketorolac Tromethamine 30 mg 11/01/17 17:45 11/01/17 18:03 Toradol IVPUSH 30 mg ONETIME ALEXANDRA Administration Methylprednisolone Sodium Succinate 125 mg 11/01/17 17:43 11/01/17 18:01 Solu-Medrol IVPUSH 11/01/17 17:44 125 mg ONETIME ONE Administration Ondansetron HCl 4 mg 11/01/17 19:56 11/01/17 20:00 Zofran Odt PO 11/01/17 19:57 4 mg ONETIME ONE Administration Sodium Chloride 10 ml 11/01/17 17:42 11/01/17 18:05 Saline Flush FLUSH 10 ml ASDIRECTED PRN Administration Keep Vein Open Departure - Departure Disposition: Home, Self-Care 01 Clinical Impression: Back pain with sciatica - Discharge Information Instructions: Back Pain, Adult, Sciatica Referrals: Lawanda Knowles PA [Primary Care Provider] - Forms: ED Department Discharge Additional Instructions: Rest back, no heavy lifting, alternate ice and heat as needed, prednisone as prescribed, you may continue to take Aleve up to 500 mg twice daily for pain and inflammation, oxycodone 5 mg every 4-6 hours as needed for severe pain or one half tablet every every 6-8 hours for moderate discomfort. Follow-up early next week with Lucy, call for appointment tomorrow morning. Return to ED as needed if symptoms worsening in any way. - My Orders Last 24 Hours: My Active Orders 11/01/17 17:42 Peripheral IV Insertion Adult [OM.PC] Stat 11/01/17 17:43 Peripheral IV Care [RC] . DIRECTED - Assessment/Plan Last 24 Hours: My Active Orders 11/01/17 17:42 Peripheral IV Insertion Adult [OM.PC] Stat 11/01/17 17:43 Peripheral IV Care [RC] . DIRECTED <Johnny Whitaker - Last Filed: 11/02/17 09:30> ED ROS GENERAL - Review of Systems Review Of Systems: See Below Respiratory: Denies: Shortness of Breath Cardiovascular: Denies: Chest Pain GI/Abdominal: Denies: Abdominal Pain, Nausea, Vomiting Musculoskeletal: Denies: Joint Pain Skin: Denies: Rash ED EXAM,LOWER BACK PAIN/INJURY - Physical Exam Exam: See Below Head: Atraumatic Neck: Supple Respiratory/Chest: No Respiratory Distress Skin Exam: Warm, Dry, Normal Color Course - Re-Assessments/Exams Free Text/Narrative Re-Assessment/Exam: 11/02/17 09:27 initial hx and exam was done by Jennifer Fields, 4th year medical student. I agree with her hx and exam as documented. I also examined and discussed findings, treatment plan with patient and her . She obtained good relief of pain with Dilaudid 0.5 mg IV times 2, torodol IV, also given solumedrol 125 mg IV. Discharge instr. as documented. Departure - Departure Time of Disposition: 19:17 Condition: Fair
[2017-11-01] MEDS: HYDROmorphone 0.5 MG/0.5 ML SYRINGE IVPUSH ONE ×2 (18:04→18:38)
[2017-11-01] MEDS ORDERED: Ondansetron 4 MG Tab.DIS PO ONE (19:56)
== END 2017-11-01 20:02 | disposition home or self-care (01) ==
LOC: JD.ED 16:04
DX: M54.41 Lumbago with sciatica, right side (principal); I10 Essential (primary) hypertension; Z79.899 Other long term (current) drug therapy; Z98.890 Other specified postprocedural states
CPT/HCPCS: 96374; 96375; 96376; 99283; A9270; J1170; J1885; J2930; J7050; 99284

== ENCOUNTER 2017-11-04 17:53 | Emergency (ER) | payer BC ==
[2017-11-04] MEDS ORDERED: Ketorolac 30 MG/ML SDV IVPUSH ONE (18:28)
[2017-11-04] MEDS ORDERED: HYDROmorphone 1 MG/ML Syringe IVPUSH ONE ×2 (18:28→21:59)
[2017-11-04] MEDS ORDERED: Sodium Chloride 0.9% 10 ML Syringe FLUSH PRN (18:29)
[2017-11-04] MEDS ORDERED: Ondansetron 4 MG/2 ML SDV IVPUSH ONE (18:56)
--- NOTE | 2017-11-04 19:05 | EDM.PDOC ---
<Jennifer Farah - Last Filed: 11/04/17 18:55> ED HPI GENERAL MEDICAL PROBLEM - General Chief Complaint: Back Pain or Injury Stated Complaint: LEG PAIN Time Seen by Provider: 11/04/17 18:02 Source of Information: Reports: Patient History Limitations: Reports: No Limitations - History of Present Illness INITIAL COMMENTS - FREE TEXT/NARRATIVE: Samreen is a 57-year-old woman with history significant for HTN, disc herniation s/p lumbar laminectomy 1.5 years ago, and diverticulosis/diverticulitis who reports acute onset of severe left hip/back pain at 0300 this morning. Samreen was in the ED three days ago for acute onset of right-sided sciatica. She was prescribed prednisone and oxycodone and reports improvement in symptoms. The symptoms she experienced at that time were similar to an episode of sciatica 2 years ago, which resolved with neurosurgical decompression 1.5 years ago. She states the left-sided symptoms are new, severe, and nothing like she's experienced before. There is no new injury or fall. The pain is localized to the left hip, and she experiences radiation of pain down her anterior left leg and to her upper body. She denies any decreased strength or difficulty walking, other than being limited by pain. She has noticed her left thigh "jumps" and she can see her muscles moving while her leg is at rest. She has not had any loss of bowel or bladder control, and no saddle anesthesia. Samreen denies fever/chills, diaphoresis, malaise, light-headedness, syncope or near-syncope, headache, visual changes, chest pain, palpitations, and abdominal pain. Onset: Today, Sudden Onset Time: 03:00 (AM) Severity: Severe Left Lower Back Pain Score (Numeric/FACES): 8 - Related Data Allergies Allergy/AdvReac Type Severity Reaction Status Date / Time No Known Allergies Allergy Verified 11/04/17 17:58 Home Meds: Home Meds Lisinopril 10 mg PO DAILY 05/08/17 [History] Diazepam [Valium] 5 mg PO Q8H PRN #12 tablet 11/04/17 [Rx] oxyCODONE HCl/Acetaminophen [Percocet 5-325 mg Tablet] 1 - 2 each PO Q4H PRN # 30 tablet 11/04/17 [Rx] Past Medical History HEENT History: Reports: None Cardiovascular History: Reports: Hypertension Respiratory History: Reports: Other (See Below) Other Respiratory History: bronchitis, cough Gastrointestinal History: Reports: Other (See Below) Other Gastrointestinal History: diveticulitis, elevated LFTs Genitourinary History: Reports: None 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: 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: 2 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 Musculoskeletal History: Reports: Other (See Below) Other Musculoskeletal History: low back pain, lumbar disc herniation, lumbosacral radiculopathy, degenerative joint disease Neurological History: Reports: None Psychiatric History: Reports: None Endocrine/Metabolic History: Reports: None Hematologic History: Reports: None Immunologic History: Reports: None Oncologic (Cancer) History: Reports: None Dermatologic History: Reports: None - Past Surgical History Head Surgeries/Procedures: Reports: None HEENT Surgical History: Reports: None Respiratory Surgical History: Reports: None GI Surgical History: Reports: None Female Surgical History: Reports: Breast Implant, Hysterectomy Endocrine Surgical History: Reports: None Neurological Surgical History: Reports: Lumbar Spine Musculoskeletal Surgical History: Reports: None Oncologic Surgical History: Reports: None Dermatological Surgical History: Reports: None Social & Family History - Family History Respiratory: Reports: COPD GI: Reports: Bowel Obstruction - Tobacco Use Smoking Status *Q: Never Smoker - Caffeine Use Caffeine Use: Reports: Coffee Other Caffeine Use: one cup a day - Recreational Drug Use Recreational Drug Use: No - Living Situation & Occupation Living situation: Reports: ( present at bedside), Other (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 Constitutional: Denies: Fever, Chills, Diaphoresis Respiratory: Denies: Shortness of Breath Cardiovascular: Denies: Chest Pain, Lightheadedness, Palpitations, Syncope GI/Abdominal: Denies: Abdominal Pain, Nausea, Vomiting Musculoskeletal: Reports: Back Pain, Joint Pain (left hip, as noted in HPI) Neurological: Reports: Tingling (right leg, unchanged ), Other. Denies: Difficulty Walking, Weakness, Gait Disturbance Immunologic: Reports: No Symptoms ED EXAM,LOWER BACK PAIN/INJURY - Physical Exam Text/Narrative:: Pt very uncomfortable, distressed, crying in pain General Appearance: Alert, Severe Distress Head: Atraumatic Neck: Normal Inspection, Non-Tender Respiratory/Chest: Lungs Clear, Normal Breath Sounds Cardiovascular: Normal Peripheral Pulses, Regular Rate, Rhythm, No Murmur GI/Abdominal: Soft, Non-Tender Back Exam: Vertebral Tenderness (severe midline tenderness in lower lumbar region. Pt immediately started crying with light to moderate palpation. ) Extremities: Normal Range of Motion (both lower legs have full range of motion and strength), Non-Tender (no left hip tenderness) Neurological: Alert, Normal Dorsiflexion, Normal Plantar Flexion, Normal Gait ( gait not tested due to pain and distress, but pt reports no difficulty walking) , Other (fasciculations noted in left quadriceps muscle). No: Normal Reflexes ( hyperreflexic at left patellar tendon. Right patellar tendon 2+, left 3+) DTR - Lower Extremities: 2+: Knee (R), 3+: Knee (L) Psychiatric: Anxious, Tearful Skin Exam: Warm, Dry Course - Vital Signs Last Recorded V/S: Last Vital Signs Temp 36.3 C 11/04/17 17:59 Pulse 98 11/04/17 17:59 Resp 12 11/04/17 17:59 BP 171/111 H 11/04/17 17:59 Pulse Ox 100 11/04/17 17:59 - Orders/Labs/Meds Orders: Active Orders 24 hr Category Date Time Status Peripheral IV Care [RC] . DIRECTED Care 11/04/17 18:29 Active Peripheral IV Care [RC] . DIRECTED Care 11/04/17 18:29 Active Lumbar Spine wo Cont [CT] Stat Exams 11/04/17 18:48 Taken Sodium Chloride 0.9% [Saline Flush] Med 11/04/17 18:29 Active 10 ml FLUSH ASDIRECTED PRN Peripheral IV Insertion Adult [OM.PC] Routine Oth 11/04/17 18:29 Ordered Medication Orders Sodium Chloride (Saline Flush) 10 ml FLUSH ASDIRECTED PRN PRN Reason: Keep Vein Open Last Admin: 11/04/17 19:04 Dose: 10 ml Labs: Laboratory Tests 11/04/17 11/04/17 11/04/17 Range/Units 18:55 18:55 18:55 WBC 5.39 (3.98-10.04) K/mm3 RBC 4.19 (3.98-5.22) M/mm3 Hgb 15.0 (11.2-15.7) gm/L Hct 44.0 (34.1-44.9) % MCV 105.0 H (79.4-94.8) fl MCH 35.8 H (25.6-32.2) pg MCHC 34.1 (32.2-35.5) g/dl RDW Std Deviation 49.9 H (36.4-46.3) fL Plt Count 207 (182-369) K/mm3 MPV 11.0 (9.4-12.3) fl Neut % (Auto) 59.8 (34.0-71.1) % Lymph % (Auto) 19.7 (19.3-51.7) % [place] % (Auto) 18.4 H (4.7-12.5) % Eos % (Auto) 1.3 (0.7-5.8) Baso % (Auto) 0.6 (0.1-1.2) % Neut # (Auto) 3.23 (1.56-6.13) K/mm3 Lymph # (Auto) 1.06 L (1.18-3.74) K/mm3 [place] # (Auto) 0.99 H (0.24-0.36) K/mm3 Eos # (Auto) 0.07 (0.04-0.36) K/mm3 Baso # (Auto) 0.03 (0.01-0.08) K/mm3 Manual Slide Review Normal smear ESR 10 (0-20) mm/hr Sodium 140 (136-145) mEq/L Potassium 3.6 (3.5-5.1) mEq/L Chloride 103 (98-107) mEq/L Carbon Dioxide 28 (21-32) mEq/L Anion Gap 12.6 (5-15) BUN 10 (7-18) mg/dL Creatinine 0.7 (0.55-1.02) mg/dL Est Cr Clr Drug Dosing 84.15 mL/min Estimated GFR (MDRD) > 60 (>60) mL/min BUN/Creatinine Ratio 14.3 (14-18) Glucose 103 (74-106) mg/dL Calcium 9.0 (8.5-10.1) mg/dL Total Bilirubin 0.5 (0.2-1.0) mg/dL AST 60 H (15-37) U/L ALT 82 H (14-59) U/L Alkaline Phosphatase 57 (46-116) U/L C-Reactive Protein 0.5 (<1.0) mg/dL Total Protein 6.8 (6.4-8.2) g/dl Albumin 3.8 (3.4-5.0) g/dl Globulin 3.0 gm/dL Albumin/Globulin Ratio 1.3 (1-2) Meds: Medications Generic Name Dose Route Start Last Admin Trade Name Freq PRN Reason Stop Dose Admin Sodium Chloride 10 ml 11/04/17 18:29 11/04/17 19:04 Saline Flush FLUSH 10 ml ASDIRECTED PRN Administration Keep Vein Open Discontinued Medications Generic Name Dose Route Start Last Admin Trade Name Harleyq PRN Reason Stop Dose Admin Diazepam 2.5 mg 11/04/17 21:59 11/04/17 22:10 Valium IVPUSH 11/04/17 22:00 2.5 mg ONETIME ONE Administration Hydromorphone HCl 1 mg 11/04/17 18:28 11/04/17 19:03 Dilaudid IVPUSH 11/04/17 18:29 1 mg ONETIME ONE Administration Hydromorphone HCl 1 mg 11/04/17 21:59 11/04/17 22:06 Dilaudid IVPUSH 11/04/17 22:00 1 mg ONETIME ONE Administration Ketorolac Tromethamine 30 mg 11/04/17 18:28 11/04/17 19:03 Toradol IVPUSH 11/04/17 18:29 30 mg ONETIME ONE Administration Lorazepam 1 mg 11/04/17 22:05 Ativan PO 11/04/17 22:06 ONETIME ONE Ondansetron HCl 4 mg 11/04/17 18:56 11/04/17 19:03 Zofran IVPUSH 11/04/17 18:57 4 mg ONETIME ONE Administration Departure - Departure Disposition: Home, Self-Care 01 Clinical Impression: Degenerative arthritis of lumbar spine Qualifiers: Spinal osteoarthritis complication: with radiculopathy Qualified Code(s): M47.26 - Other spondylosis with radiculopathy, lumbar region Left-sided low back pain with sciatica Qualifiers: Chronicity: acute Sciatica laterality: sciatica of left side Qualified Code(s) : M54.42 - Lumbago with sciatica, left side - Discharge Information Prescriptions: Diazepam [Valium] 5 mg PO Q8H PRN #12 tablet PRN Reason: Muscle spasm back oxyCODONE HCl/Acetaminophen [Percocet 5-325 mg Tablet] 1 - 2 each PO Q4H PRN # 30 tablet PRN Reason: pain relief. Referrals: Leroy Knowles PA [Primary Care Provider] - Forms: ED Department Discharge Additional Instructions: Evaluation in the emergency room tonight in regards to development of increased left low back pain radiating to your left lower extremity compatible with disc herniation. CT of the lower back reveals extensive degenerative arthritic changes in all of the back joints from lumbar to to lumbar 5. It is also evidence of disc protrusion posterior disc bulges seen at all levels from lumbar to to lumbar 5. These bulges contribute to mild central canal narrowing but also extend laterally contributing to mild lumbar to to lumbar 5 neural foraminal narrowing. The foramen is where the nerves exit the spinal cord and travel down the leg. There appears to be a soft tissue density within the right lumbar 4 neural foramen which may represent a persistent or recurrent disc herniation with possible extrusion. Pain is on the left side. For an MRI of your lumbar spine needs to be carried out to identify which level is causing current compression of nerve root. I will have the x-ray department call you tomorrow morning with an appointment time for an MRI within the next few days. In the meantime suggest Percocet 5/3/25 milligram tablet 2 every 3 hours as needed for pain relief. Valium 5 mg every 8 hours as needed for relief of pain and muscle spasm in the leg. Take Ativan tablet 1 mg 1 hour prior to MRI scanning. Follow-up with personal care physician or provider today after MRI is completed range for neurosurgical consultation and management. <David Amaro - Last Filed: 11/04/17 22:18> ED ROS GENERAL - Review of Systems Review Of Systems: See Below ED EXAM,LOWER BACK PAIN/INJURY - Physical Exam Exam: See Below Course - Re-Assessments/Exams Free Text/Narrative Re-Assessment/Exam: 11/04/17 19:[address] Shavonne Huertas at change of shift. She had ordered labs and a CT scan of the lumbar spine due to increasing low back pain.Labs are back revealing a normal white count at 5.39. Differential reveals 60% neutrophils. Hemoglobin 15.0 with hematocrit of 44.0. MCV is elevated at 105.0. Platelet counts 207,000. Sedimentation rate of 10. Chemistries essentially normal. Liver function reveals a bilirubin of 0.5 mild elevation of the AST at 60 and ALT at 82. Alk phosphatase normal at 57. C-reactive protein 0.5. I reviewed the CT scan of the lumbar spine and reveals disc bulge posteriorly at L3-L4 or L4-L5 and L5-S1. The worst appears to be at the L5-S1 level. Mild nerve root entrapment on the left side. Will await radiology report in this regard 11/04/17 22:16 will increase her Percocet tabs to 5/325 mg to tablets every 3 hours needed for pain relief as one is not working at all. Also add Valium 5 mg every 8 hours as needed for muscle spasm relief in her left lower extremity. I will have her booked for an MRI as an outpatient this week and have radiology protocol her in the morning to arrange suitable appointment time. She will follow up with Lucy Pérez day after the MRI is completed to arrange for neurosurgical consultation and management. Clinically she has a herniated disc on the left side likely at L4-5 but maybe at L3-L4. Departure - Departure Time of Disposition: 22:01 Condition: Fair - Discharge Information *PRESCRIPTION DRUG MONITORING PROGRAM REVIEWED*: Not Applicable *COPY OF PRESCRIPTION DRUG MONITORING REPORT IN PATIENT TIMOTEO: Not Applicable
[2017-11-04] MEDS ORDERED: LORazepam 1 MG Tab PO ONE (22:05)
--- NOTE | 2017-11-05 09:20 | CT ---
CT lumbar spine Technique: Multiple axial sections were obtained from the top of T11 inferiorly to the mid S4 segment. Reconstructed sagittal and coronal images were obtained. Comparison: Previous lumbar spine exam of 06/07/16. Findings: T11-12: Slight anterior osteophytes are seen. Posterior disc is preserved. No central canal stenosis or neural foraminal stenosis is seen. T12-L1: Posterior disc is preserved. No central canal stenosis or neural foraminal stenosis is seen. L1-L2: Mild disc space narrowing is noted. Slight circumferential disc bulge is present. Posterior disc maintains a concave margin. No central canal stenosis or neural foraminal stenosis is seen. L2-L3: Slight disc space narrowing is seen. Moderate circumferential disc bulge is present. Posterior disc maintains a slight concave margin. No central canal stenosis or neural foraminal stenosis is seen. Very slight degenerative apophyseal change is noted. L3-L4: Slight disc space narrowing is seen. Fairly severe degenerative apophyseal change is noted. Minimal spondylolisthesis by several millimeters is noted. Circumferential disc bulge is present. Posterior disc maintains mostly planar margin. Minimal central canal stenosis is noted. Neural foramina are patent where the nerve roots exit. L4-L5: Previous right sided mini laminectomy is noted. Severe degenerative apophyseal change is noted. Circumferential disc bulge is present. Disc bulging or more likely scarring is seen within the right neural foramen. Difficult to completely exclude recurrent disc protrusion or herniation. Left neural foramen is patent. L5-S1: Slight diffuse posterior disc bulge is seen. Neural foramina are patent where the nerve roots exit. No central canal stenosis is seen. Moderately severe degenerative apophyseal change is seen. No fracture is identified. Impression: 1. Degenerative change as noted above. Mild central canal stenosis noted at L3-L4. Soft tissue material which may represent disc protrusion or scarring extending into the neural foramina on the right side at L4-L5. MRI with contrast enhancement would be needed to further evaluate. 2. Other degenerative change as noted above which appears fairly stable from prior MRI. Diagnostic code #3 I agree with preliminary report issued by [facility] ([facility] report finalized on 11/04/17, 10:23 PM Central Time)
== END 2017-11-04 22:30 | disposition home or self-care (01) ==
LOC: JD.ED 17:53
DX: M47.26 Other spondylosis with radiculopathy, lumbar region (principal); M54.42 Lumbago with sciatica, left side; I10 Essential (primary) hypertension; Z79.899 Other long term (current) drug therapy
CPT/HCPCS: 36415; 72131; 80053; 85025; 85652; 86140; 96374; 96375; 96376; 99284; A9270; J1170; J1885; J2405; J3360; J7050